=== PATIENT | female | born 1965 | race Caucasian/White ===

== ENCOUNTER → 2017-12-04 16:16 | Outpatient (CLI) | payer BC, SELFPAY ==
[2017-12-09 10:29] LABS: HPV Reflexed? NOT INDICATED
== END ==
PROVIDERS: Visit Provider Obstetrics & Gynecology
DX: Z12.4 Encounter for screening for malignant neoplasm of cervix (principal)
CPT/HCPCS: 88175; G0145

== ENCOUNTER → 2018-02-13 08:54 | Outpatient (CLI) | payer BC, SELFPAY ==
--- NOTE | 2018-02-13 09:00 | BI_ITS ---
MAMMOGRAPHY - BILATERAL SCREENING REASON FOR EXAM: Female, 52 years old. Routine annual screening examination. PERTINENT HISTORY: Non-contributory. TECHNIQUE: Digital bilateral breast beltran (3D mammographic acquisition) in the CC and MLO projections. 2-D mediolateral oblique (MLO) and craniocaudad (CC) views of both breasts were obtained. CAD: Full Field Digital Mammography with Computer Added Detection was performed. COMPARISON: Comparison is made with prior examination dated February 09, 2017 and February 08, 2016. FINDINGS: Breast Composition: The breasts are heterogeneously dense, which may obscure small masses. There are no dominant masses or suspicious calcifications. Stable benign-appearing bilateral axillary lymph nodes. No other significant abnormalities are identified. There has been no significant change since the prior study. BI/SCREENING MAMM (CAD), BILAT IMPRESSION: Stable bilateral screening mammogram. Yearly follow-up mammogram recommended. (A) ASSESSMENT CATEGORY: BIRADS Category 1: Negative. A letter regarding these results will be sent to the patient by the facility within 30 days. Approximately 10% of breast cancers are not detected by mammography. A normal mammogram should not delay biopsy of a clinically suspicious abnormality. [id number] Electronically Signed: Alverto Simpson MD at 10:05 EDT Tel [phone], Service support ,
== END ==
PROVIDERS: Visit Provider Obstetrics & Gynecology
DX: Z12.31 Encounter for screening mammogram for malignant neoplasm of breast (principal)
CPT/HCPCS: 77063; 77067

== ENCOUNTER → 2019-04-07 | Outpatient (CLI) | payer BC, SELFPAY ==
--- NOTE | 2019-04-07 16:51 | BI_ITS ---
MAMMOGRAPHY - BILATERAL SCREENING REASON FOR EXAM: Female, 53 years old. Routine annual screening examination. PERTINENT HISTORY: Non-contributory. TECHNIQUE: Digital bilateral breast heladio (3D mammographic acquisition) in the CC and MLO projections. 2-D mediolateral oblique (MLO) and craniocaudad (CC) views of both breasts were obtained. CAD: Full Field Digital Mammography with Computer Added Detection was performed. COMPARISON: Comparison is made with prior study dated February 13, 2018 and February 09, 2017. FINDINGS: Breast Composition: The breasts are heterogeneously dense, which may obscure small masses. There are no dominant masses or suspicious calcifications. Stable appearance of the small bilateral axillary lymph nodes. No other significant abnormalities are identified. There has been no significant change since the prior study. BI/SCREEN MAMM (CAD) W/HELADIO BILAT IMPRESSION: Stable bilateral screening mammogram. Yearly follow-up mammogram recommended. (A) ASSESSMENT CATEGORY: BIRADS Category 2: Benign. A letter regarding these results will be sent to the patient by the facility within 30 days. Approximately 10% of breast cancers are not detected by mammography. A normal mammogram should not delay biopsy of a clinically suspicious abnormality. [id number] Electronically Signed: Alverto Simpson, at 9:39 EDT , Service support ,
== END | disposition home or self-care (01) ==
LOC: OPBI 16:49
PROVIDERS: Referring Provider Obstetrics & Gynecology; Visit Provider Obstetrics & Gynecology
DX: Z12.31 Encounter for screening mammogram for malignant neoplasm of breast (principal)
CPT/HCPCS: 77063; 77067

== ENCOUNTER → 2020-06-15 13:58 | Outpatient (CLI) | payer BC, SELFPAY ==
--- NOTE | 2020-06-15 14:11 | BI_ITS ---
MAMMOGRAPHY - BILATERAL SCREENING REASON FOR EXAM: Female, 54 years old. Routine annual screening examination. PERTINENT HISTORY: Screening TECHNIQUE: Digital bilateral breast heladio (3D mammographic acquisition) in the CC and MLO projections. 2-D mediolateral oblique (MLO) and craniocaudad (CC) views of both breasts were obtained. CAD: Full Field Digital Mammography with Computer Added Detection was performed. COMPARISON: 04/07/2019 FINDINGS: Breast Composition: Heterogeneous There are no dominant masses or suspicious calcifications. No other significant abnormalities are identified. BI/SCREEN MAMM (CAD) W/HELADIO BILAT IMPRESSION: Stable bilateral screening mammogram. Yearly follow-up mammogram recommended. (A) ASSESSMENT CATEGORY: BIRADS Category 1: Negative. A letter regarding these results will be sent to the patient by the facility within 30 days. Approximately 10% of breast cancers are not detected by mammography. A normal mammogram should not delay biopsy of a clinically suspicious abnormality. [id number] Electronically Signed: Arnol Mix, at 17:14 EST Tel , Service support ,
== END ==
PROVIDERS: Referring Provider Student in an Organized Health Care Education/Training Program; Visit Provider Student in an Organized Health Care Education/Training Program
DX: Z12.31 Encounter for screening mammogram for malignant neoplasm of breast (principal)
CPT/HCPCS: 77063; 77067

== ENCOUNTER 2020-06-24 17:16 | Inpatient (IN) | payer BC, SELFPAY ==
[2020-06-24 17:17] VITALS: BP 143/73; PULSE 92; RESP 18; TEMP 37.1; O2SAT 97; BMI 28.7
--- NOTE | 2020-06-24 17:27 | ED.DCSUM_ITS ---
- ER Visit Summary Date of Service: 06/24/20 Chief Complaint: [Injury of the left leg] History of Present Illness: The patient is a 54 F [presents to the emergency department after sustaining an injury to her left leg this afternoon. Patient states that she was standing on the bathroom counter trying to change a light bulb when she fell off of the counter and landed awkwardly on her left leg. Patient states that she felt like she felt a bone break in her leg. Unable to bear weight afterwards and she crawled to call for help. Her had just pulled into the driveway and brought her to the emergency department for evaluation. Patient denies striking her head. She denies loss of consciousnes s. She denies neck pain. She denies chest pain or abdominal pain. She denies any back injury. Patient has no medical history. She has no primary care physician.] Physical Examination: [HEENT-PERRLA, EOMI. Cranial nerves II through XII grossly intact. TMs clear. Mucous membranes moist. No adenopathy. No external evidence of trauma to her head. No C-spine tenderness on palpation. She has normal active range of motion is painless. Cardiovascular-regular rate and rhythm without murmur or ectopy Lungs-clear to auscultation, chest wall stable without crepitus or subcu emphysema Abdomen-normoactive bowel sounds, soft, nontender, no rebound or rigidity, no peritoneal signs. Extremities-intact ?4, normal range of motion, normal pulses. Left leg-patient has diffuse tenderness over the proximal fibula and she holds the knee flexed and is unwilling to extend it. She is neurovascular intact distally. No broken skin noted. Unable to perform ligamentous exam of the knee secondary to pain.] Test Results: [X-rays of the right knee obtained showed a comminuted intra- articular fracture of the proximal tibia as well as the proximal fibular head as interpreted by myself and radiology in agreement on their interpretation.. The fracture involves the tibial plateau.] Emergency Department Course and Treatment: [IV line established. Patient was medicated with morphine and Zofran.] Case was discussed with orthopedic surgeon on-call Dr. Callejas who asked that we admit patient to medicine for pain control and he will consult surgically for intervention. Treatment Plan: [Admit] Disposition: [Admit] Impression: Right knee fracture/proximal tibia and proximal fibular head [] This note was generated with i[employer] dictation software. It may contain incorrect words, spelling, and punctuation that were not noted in review of the chart prior to signing ED Disposition - Plan for ED Patient: Referrals: Care Physician,No Primary [Primary Care Provider] -
--- NOTE | 2020-06-24 17:35 | RAD_ITS ---
STUDY: X-RAY - LEFT TIBIA AND FIBULA REASON FOR EXAM: Female, 54 years old. FELL OFF KITCHEN COUNTER ONTO LEFT LEG; PAIN PROXIMAL TIB FIB PROXIMAL TIB FIB INCLUDED IN KNEE XRAYS SINCE SO UNSTABLE TECHNIQUE: 2 view(s) of the tibia and fibula were obtained. COMPARISON: None. FINDINGS: Normal visualized tibia. Normal visualized fibula. The proximal tibia and fibula are described on knee x-ray. The soft tissue structures are unremarkable. RAD/Tibia & Fibula 2 Views IMPRESSION: No demonstrated fracture or malalignment. Proximal tibia and fibular fractures described on the x-ray. Electronically Signed: Arturo Alfred MD ([place]) at 18:15 EST , Service support ,
--- NOTE | 2020-06-24 17:35 | RAD_ITS ---
STUDY: X-RAY - LEFT KNEE REASON FOR EXAM: Female, 54 years old. Fell off her counter onto left leg; PAIN PROXIMAL TIB FIB TECHNIQUE: 2 view(s) of the knee. COMPARISON: None. FINDINGS: Normal visualized distal femur. There is a comminuted fracture of the proximal tibia with a transverse component extending through the metaphysis. Longitudinal components extending through the central tibial plateau as well as the lateral tibial plateau. There is approximately 7 mm of displacement of the lateral tibial plateau fracture and approximately 5 mm of lateral displacement. Transverse comminuted fracture of the proximal fibula is also identified. Normal medial femorotibial compartment. Normal lateral femorotibial compartment. There is mild degenerative arthrosis of the patellofemoral articulation. There is no demonstrated joint effusion. The soft tissue structures are unremarkable. RAD/Knee 1 or 2 Views IMPRESSION: 1. Proximal tibial fracture with tibial plateau component, including depression and displacement, as above. 2. Proximal fibular neck fracture. Electronically Signed: Arturo Alfred MD ([place]) at 18:14 EST , Service support ,
[2020-06-24] MEDS: Morphine 4 MG/ML Syringe IV ×2 (18:03→19:00)
[2020-06-24] MEDS: Ondansetron 4 MG/2 ML Vial IV (18:04)
[2020-06-24 18:56] LABS: Absolute Lymphocyte Count 1.74 X10^3/uL (0.83-4.51); Absolute Neutrophil Count 8.8 X10^3/uL (2.0-7.7); Basophil# 0.06 X10^3/uL; Basophil% 0.5 % (0-1); Eosinophil# 0.04 X10^3/uL; Eosinophils% 0.3 % (0-5); Hematocrit 38.8 % (37-47); Hemoglobin 13.1 g/dL (12.0-15.0); Lymphocyte # 1.74 X10^3/ul (4.0); Lymphocyte % 14.9 % (19-41); Mean Corp Hgb Conc 33.8 g/dL (32-36); Mean Corpuscular Hgb 30.8 pg (27.0-32.0); Mean Corpuscular Volume 91.3 fL (81-99); Mean Platelet Vol. 10.9 fl (6.2-12.0); Monocyte# 0.97 X10^3/uL; Monocyte% 8.3 % (0-10); NRBC Flagged by Analyzer 0 % (0-5); Neutrophil # 8.79 X10^3/uL (2.7-7.7); Neutrophil % 75.5 % (47-70); Platelet Count 194 K/mm3 (150-450); RBC Distribution Width CV 11.9 % (11.6-14.6); RBC Distribution Width SD 39.7 fl (35.1-43.9); Red Blood Count 4.25 M/mm3 (4.2-5.4); White Blood Count 11.7 K/mm3 (4.4-11.0)
--- NOTE | 2020-06-24 19:05 | PCM.PN.HOSP ---
Vitals/I&O's: Vital Signs Temp Pulse Resp BP Pulse Ox 98.7 F 92 18 143/73 H 97 06/24/20 17:17 06/24/20 17:17 06/24/20 17:17 06/24/20 17:17 06/24/20 17:17 Oxygen Delivery Method Room Air Weight: 73.6 kg Body Mass Index (BMI) 28.7 Laboratory Results 06/24/20 18:35: WBC 11.7 H, RBC 4.25, Hgb 13.1, Hct 38.8, MCV 91.3, MCH 30.8, MCHC 33.8, RDW Std Deviation 39.7, RDW Coeff of Maranda 11.9, Plt Count 194, MPV 10.9, Immature Gran % (Auto) 0.500, Neut % (Auto) 75.5 H, Lymph % (Auto) 14.9 L, Dauphin % (Auto) 8.3, Eos % (Auto) 0.3, Baso % (Auto) 0.5, Absolute Neuts (auto) 8.8 H, Absolute Lymphs (auto) 1.74, Nucleated RBC % 0 06/24/20 18:35: Sodium Pending, Potassium Pending, Chloride Pending, Carbon Dioxide Pending, Anion Gap Pending, BUN Pending, Creatinine Pending, Est GFR (MDRD) Af Amer Pending, Est GFR (MDRD) Non-Af Pending, BUN/Creatinine Ratio Pending, Glucose Pending, Calcium Pending STROKE Vital Signs/Narrative: Vital Signs Temp Pulse Resp BP Pulse Ox 06/24/20 17:17 98.7 F 92 18 143/73 H 97 Medical Necessity - Tobacco Use Smoking Status: Never smoker
[2020-06-24 19:10] LABS: Anion Gap 5 (5-15); BUN 15 mg/dL (7-18); BUN/Creat Ratio 15.8 RATIO (10-20); Calcium,Total 8.8 mg/dL (8.5-10.1); Chloride 107 mmol/L (98-107); Creatinine, Serum 0.95 mg/dL (0.55-1.02); EST Glomerular Filtration Rate 64 mL/min (>60); Est Glom Filt Rate - Afr Amer 78 mL/min (>60); Glucose 92 mg/dL (74-106); Potassium 3.3 mmol/L (3.5-5.1); Sodium Level 140 mmol/L (136-145)
[2020-06-24 19:31] VITALS: BP 145/75; PULSE 90; RESP 16; TEMP 37.4; O2SAT 97
[2020-06-24] MEDS: Morphine 4 MG/ML Syringe 3 MG IV (20:26)
[2020-06-24 20:28] VITALS: BMI 29.0
--- NOTE | 2020-06-24 20:36 | EKG12_ITS ---
Test Reason : PRE-OP Blood Pressure : / mmHG Vent. Rate : 078 BPM Atrial Rate : 078 BPM P-R Int : 124 ms QRS Dur : 082 ms QT Int : 370 ms P-R-T Axes : 052 021 033 degrees QTc Int : 421 ms Normal sinus rhythm Normal ECG Confirmed by WIN MERA, ANTONIO ([id number]), marketing editor ARIADNE LEE ([id number]) on 06/27/2020 1:30:40 PM Referred By: DR BRIDGES Confirmed By:ANTONIO WALDEN MD
[2020-06-24 20:37] VITALS: BP 125/53; PULSE 87; RESP 16; TEMP 37.1; O2SAT 100
--- NOTE | 2020-06-24 20:37 | PCM.HP.STD ---
Problem List (1) Closed fracture of tibial plafond with fibula involvement Status: Acute History of Present Illness Date of Admission: 06/24/20 Chief Complaint: Fall with left knee pain The patient is a 54 year old previously healthy female who presented to the emergency department with a fall and pain at her lateral left leg proximal to her left knee. Patient was changing a light bulb in her bathroom. She stood on a stool but she was unable to screw the bulb in so she stood on her bathroom counter. She fell from the bathroom counter. She did not hit her head. She had pain at the above area. The pain is sharp. The pain is intensity 10 out of 10 and it was getting progressively worse. The pain is aggravated by movement and improved with rest. At the emergency department emergency ED doc applied a splint to the entire left leg including left knee. Emergency department doctor discussed the case with orthopedic surgeon who will follow in consult. Past Medical History Medical History: Medical History (Last Reviewed 06/24/20 @ 21:[address] Subhash Silverman MD) Denies previous medical history Allergies No Known Allergies Allergy (Verified 06/24/20 18:09) Home Medications: Ambulatory Orders Medication Instructions Recorded NK 06/24/20 Surgical History: - - Section x2 Smoking Status: Never smoker Alcohol: Occasional - *Family History Paternal History Items: Heart Disease - His father from a massive heart attack Maternal History Items: - - His mother fell and broke her hip and now in the [place] [facility]. Patient does not know other maternal medical history. Review of Systems Constitutional: Denies: Chills, Fever, Weight Change HEENT: Denies: Head Aches, Sinus Congestion, Sinus Drainage Cardiovascular: Denies: Chest Pain, Palpitations Respiratory: Denies: Cough, Shortness of breath at rest, Sputum production Gastrointestinal: Denies: Abdominal Pain, Nausea, Vomiting Genitourinary: Denies: Dysuria Musculoskeletal: Reports: Joint Tenderness, Leg Pain. Denies: Joint Pain Skin: Denies: Rash, Wounds Neurological: Denies: Numbness, Tingling, Focal weakness Psychiatric: Denies: Anxiety, Depression, Homicidal Ideations, Suicidal Ideations Hematologic/ Lymphatic: Denies: Easy Bruising, Easy Bleeding VTE Information - Inpt Only VTE Present on Admission: No VTE Mechan Device Prophylaxis: SCD's VTE Pharm Prophylaxis ordered?: No Patient Problems: Active and Suspected Problems (Last Updated 06/24/20 @ 20:[address] Subhash Silverman MD) Closed fracture of tibial plafond with fibula involvement (Acute) - Physical Exam Vitals/I&O's: Vital Signs Temp Pulse Resp BP Pulse Ox 99.3 F H 90 16 145/75 H 97 06/24/20 19:31 06/24/20 19:31 06/24/20 19:31 06/24/20 19:31 06/24/20 19:31 Oxygen Delivery Method Room Air Weight: 74.4 kg Body Mass Index (BMI) 29.0 General: Alert, Oriented x3, Cooperative HEENT: Atraumatic, PERRLA, EOMI, Normocephalic Neck: Supple, No JVD, Negative Carotid Bruits Lungs: Clear to auscultation, Normal air movement Cardiovascular: Regular rate, Normal S1, Normal S2, No murmurs Abdomen: Bowel Sounds Present, Soft, Non Tender Extremities: Tenderness - LEFT LEG, - - Left legt in splint Skin: No rashes, No breakdown Musculoskeletal: No Tenderness to Palpation of Joints or Extremities Neurological: Cranial nerves II-XII grossly intact Psych/Mental Status: Normal Affect, Appropriate Microbiology Past 72 Hours 06/24/20 19:35 Mucosa - Nose SARS-CoV-2 Antigen (Rapid) - Final Laboratory Results 06/24/20 18:35: WBC 11.7 H, RBC 4.25, Hgb 13.1, Hct 38.8, MCV 91.3, MCH 30.8, MCHC 33.8, RDW Std Deviation 39.7, RDW Coeff of Maranda 11.9, Plt Count 194, MPV 10.9, Immature Gran % (Auto) 0.500, Neut % (Auto) 75.5 H, Lymph % (Auto) 14.9 L, Elbert % (Auto) 8.3, Eos % (Auto) 0.3, Baso % (Auto) 0.5, Absolute Neuts (auto) 8.8 H, Absolute Lymphs (auto) 1.74, Nucleated RBC % 0 06/24/20 18:35: Sodium 140, Potassium 3.3 L, Chloride 107, Carbon Dioxide 28.0, Anion Gap 5, BUN 15, Creatinine 0.95, Estim Creat Clear Calc 54.70, Est GFR (MDRD) Af Amer 78, Est GFR (MDRD) Non-Af 64, BUN/Creatinine Ratio 15.8, Glucose 92, Calcium 8.8 Current Medications Melatonin (Melatonin 3 Mg Tablet) 3 mg PO QHS PRN PRN PRN Reason: INSOMNIA Morphine Sulfate (Morphine 2 Mg/Ml Syringe) 2 mg IV Q3H PRN PRN PRN Reason: Pain Score 6-10 Ondansetron HCl (Ondansetron 4 Mg/2 Ml Vial) 4 mg IV Q8H PRN PRN PRN Reason: NAUSEA/VOMITING Assessment/Plan All Active Problems (Last Updated 06/24/20 @ 20:[address] Subhash Silverman MD) Closed fracture of tibial plafond with fibula involvement (Acute) Proximal tibial fracture proximal fibular neck fracture Pain control with IV morphine. Antiemetics and bowel protocol in place. N.p.o. after midnight. Patient is healthy for surgery. EKG ordered. DVT Prophylaxis SCD. Inpatient E&M: 12299 Init Hosp L2
[2020-06-24 20:38] VITALS: BMI 29.1
[2020-06-24] MEDS: HYDROmorphone 0.5 MG/0.5 ML SYRINGE IV (22:19)
[2020-06-24] MEDS: 0.9% Saline Lock 10 ML Syringe IV (22:19)
[2020-06-24] MEDS: MELATONIN 3 MG TABLET PO (23:31)
[2020-06-25] VITALS (16 sets, daily range): BP systolic 118–137; BP diastolic 56–72; PULSE 63–81; RESP 16–18; TEMP 36.7–37.5; O2SAT 92–97; BMI 28.3
[2020-06-25] MEDS: HYDROmorphone 0.5 MG/0.5 ML SYRINGE IV (02:31)
[2020-06-25] MEDS: 0.9% Saline Lock 10 ML Syringe IV ×4 (02:31→16:36)
--- NOTE | 2020-06-25 05:45 | RAD_ITS ---
STUDY: X-RAY - LEFT KNEE REASON FOR EXAM: Female, 54 years old. FX, EXTERNAL FIXATION TECHNIQUE: 2 view(s) of the knee. COMPARISON: Comparison is made with prior examination dated 06/24/2020. FINDINGS: Intraoperative imaging provided for external fixation of the lateral tibial plateau fracture. RAD/Knee 1 or 2 Views IMPRESSION: Intraoperative imaging provided for external fixation of the lateral tibial plateau fracture. Electronically Signed: Alverto Simpson, at 10:31 EST , Service support ,
--- NOTE | 2020-06-25 05:55 | CON.PCM_ITS ---
Reason for Consult Date of Consultation: 06/25/20 Reason for Consultation: Left leg injury. requested by dr christiansen History of Present Illness: The patient is a 54 year old F with limited medical comorbidities was standing on her bathroom counter last evening changing a light bulb when she fell off. She sustained an injury to her left leg. She had immediate pain and swelling was unable to bear weight. She was brought to the emergency department where she was found to have a Schatzker 6 tibial plateau fracture. Due to the injury patient had 10 out of 10 pain. She was placed in a posterior splint. Pain is improved with immobilization. She denies any associated numbness and tingling. She has been controlled by pain throughout the evening with pain medications and immobilization. She is able to wiggle her toes without significant reproducible pain. Pain is located in the left knee and thigh. Past Medical History Medical History: Medical History (Last Reviewed 06/24/20 @ 21:[address] 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 Patient does not know other maternal medical history. Review of Systems Constitutional: Denies: Chills, Fever, Weight Change HEENT: Denies: Head Aches, Sinus Congestion, Sinus Drainage Cardiovascular: Denies: Chest Pain, Palpitations Respiratory: Denies: Cough, Shortness of breath at rest, Sputum production Gastrointestinal: Denies: Abdominal Pain, Nausea, Vomiting Genitourinary: Denies: Dysuria Musculoskeletal: Reports: Joint Pain, Joint Tenderness Skin: Denies: Rash, Wounds Neurological: Denies: Numbness, Tingling, Focal weakness Psychiatric: Denies: Anxiety, Depression, Homicidal Ideations, Suicidal Ideations Hematologic/ Lymphatic: Denies: Easy Bruising, Easy Bleeding Patient Problems: Active and Suspected Problems (Last Reviewed 06/24/20 @ 21:[address] Subhash Silverman MD) Closed fracture of tibial plafond with fibula involvement (Acute) Objective: X-rays of the left tibia and fibula and left knee show a Schatzker 6 tibial plateau fracture falling into varus alignment - Physical Exam Vitals/I&O's: Vital Signs Temp Pulse Resp BP Pulse Ox 98.9 F 75 17 137/63 H 93 06/25/20 04:56 06/25/20 04:56 06/25/20 04:56 06/25/20 04:56 06/25/20 04:56 Oxygen Delivery Method Room Air Weight: 160 lb Body Mass Index (BMI) 28.3 Intake and Output for Last 24 Hours 06/23/20 06/24/20 06/25/20 23:59 23:59 23:59 Intake Total 500 / 500 Output Total 500 / 500 Balance 0 / 0 General: Alert, Oriented x3, Cooperative HEENT: Atraumatic, PERRLA, EOMI, Normocephalic Neck: No JVD Lungs: - - Nonlabored breathing Cardiovascular: - - Regular pulse rate Abdomen: Non-Distended Extremities: - - Sensations in left lower extremity: Extremity is splinted. Patient's calf is soft and supple. Toes are warm and pink with brisk cap ref ill. Patient tolerates passive range of motion without excessive increase in pain. Sensations intact light touch saphenous, sural, superficial peroneal, deep per Skin: No rashes Musculoskeletal: Tenderness Neurological: Cranial nerves II-XII grossly intact Psych/Mental Status: Normal Affect Microbiology Past 72 Hours 06/24/20 19:35 Mucosa - Nose SARS-CoV-2 Antigen (Rapid) - Final Laboratory Results 06/24/20 18:35: WBC 11.7 H, RBC 4.25, Hgb 13.1, Hct 38.8, MCV 91.3, MCH 30.8, MCHC 33.8, RDW Std Deviation 39.7, RDW Coeff of Maranda 11.9, Plt Count 194, MPV 10.9, Immature Gran % (Auto) 0.500, Neut % (Auto) 75.5 H, Lymph % (Auto) 14.9 L, Crenshaw % (Auto) 8.3, Eos % (Auto) 0.3, Baso % (Auto) 0.5, Absolute Neuts (auto) 8.8 H, Absolute Lymphs (auto) 1.74, Nucleated RBC % 0 06/24/20 18:35: Sodium 140, Potassium 3.3 L, Chloride 107, Carbon Dioxide 28.0, Anion Gap 5, BUN 15, Creatinine 0.95, Estim Creat Clear Calc 54.70, Est GFR (MDRD) Af Amer 78, Est GFR (MDRD) Non-Af 64, BUN/Creatinine Ratio 15.8, Glucose 92, Calcium 8.8 Current Medications Hydromorphone HCl (Hydromorphone 0.5 Mg/0.5 Ml Syringe) 0.5 mg IV Q3H PRN PRN PRN Reason: pain [id number] Last Admin: 06/25/20 02:31 Dose: 0.5 mg Documented by: Melatonin (Melatonin 3 Mg Tablet) 3 mg PO QHS PRN PRN PRN Reason: INSOMNIA Last Admin: 06/24/20 23:31 Dose: 3 mg Documented by: Ondansetron HCl (Ondansetron 4 Mg/2 Ml Vial) 4 mg IV Q8H PRN PRN PRN Reason: NAUSEA/VOMITING Senna/Docusate Sodium (Senna/Docusate Sodium 1 Tablet) 2 tablet PO DAILY PRN PRN PRN Reason: CONSTIPATION Sodium Chloride (0.9% Saline Lock 10 Ml Syringe) 10 - 40 ml IV UD PRN PRN Reason: SALINE FLUSH Last Admin: 06/25/20 05:06 Dose: 10 ml Documented by: Assessment/Plan All Active Problems (Last Reviewed 06/24/20 @ 21:[address] Subhash Silverman MD) Closed fracture of tibial plafond with fibula involvement (Acute) Patient has unstable Schatzker 6 tibial plateau fracture. Treatment options were discussed the patient. I explained the patient is a complex fracture. Transfers are difficult at this time due to the viral pandemic and associated hospital bed shortages. At this time I discussed the patient that my goal is to stabilize the fracture and obtain a consultation on an outpatient basis with a fracture traumatologist as the swelling decreases. I explained the way to do this is with an external fixator which will give her more stability and better alignment controlled in the posterior splint. Risks and benefits of this procedure were discussed the patient including but not limited to blood loss, DVTs, PEs, nervous damage, infection, general skin anesthesia including loss of life. We also discussed postoperative pain care. Patient demonstrates an understanding wishes to proceed today. [facility] Office:
--- NOTE | 2020-06-25 06:34 | OP.PCM_ITS ---
Report of Operation Date of Procedure: 06/25/20 Pre-Operative Diagnosis: Left knee Schatzker 6 tibial plateau fracture Post-Operative Diagnosis: Left knee Schatzker 6 tibial plateau fracture Surgery/Procedure Performed:: Placement uniplanar external fixator left leg Description of Surgical Findings:: Stable alignment. Compartments remain compressible systems technologist: Yuri De La Rosa Type of Anesthesia:: General Anesthesiologist: Feli Muller Special Medications: 2 g Ancef IV Estimated Blood Loss (mL): 20 Fluids Replaced: 300 mL crystalloid Description of Procedure: On the day of the procedure patient was met in the preoperative area. Patient was seen and examined there. The left lower extremity was marked after we agreed on the side and the site as well as the procedure to be performed as mentioned in the consultation. At this time the patient was taken back to the operating room where anesthesia assumed control of the C-spine and airway. We transferred her to the table in the supine position. Anesthesia then administered anesthetic placing an LMA. After patient was properly anesthetized bump was placed underneath the left hip left leg was placed on blankets for elevation and the left lower extremity was then prepped in a sterile fashion while the surgeon and financial sales assistant scrub. After reentering the room the left lower extremity was draped in a sterile orthopedic fashion. Timeout was called and when agreed upon the side, the site, she did perform, patient's identity and antibiotics given. At this time pin guides were used to make 4 incisions 2 on the femur and 2 on the tibia. Once this was completed 2 pins were then placed bicortically through the femur and 2 pins were placed bicortically through the tibia. Live x-ray was used to verify placement of the pins. Once we are happy with placement of the pins bar connector was placed. The longus bar possible was chosen. It was fixed tightly proximally. Traction was pulled to ensure the appropriate alignment. Live x- ray was used to verify alignment and the distal connector was tightened down. We then tightened all the pins and connectors with a wrench firmly. Once it was completed live x-rays used to verify fracture alignment once more. We then checked the compartments which remained compressible in both the calf and thigh. At this time we also checked the toes and she has good cap refill. Xeroform was placed around the pin sites. A loosely wrapped Uday bandage and Kerlix were placed. We verified we can place 2 fingers between the soft tissues and the Curlex both proximally distally. Patient was awakened by anesthesia. She was transferred to the bed and transferred back to PACU for recovery. Postop plan for this patient we will arrange for the patient to have consultation with an orthopedic traumatologist for final fixation. Ice and elevation. She is comfortable she would likely be able to be discharged later today. Preoperatively we discussed the potential for development of compartment syndrome even in a delayed fashion. The symptoms were discussed and patient understands if she goes home today she is to monitor for this. Finally patient will begin pin care in 48 hours using 50:50 mixture of hydrogen peroxide and water twice daily. Patient is nonweightbearing. - Complications No intraoperative complications - Admit VTE Documentation VTE Present on Admission: No VTE Mechan Device Prophylaxis: SCD's, Thigh High PAWAN Hose VTE Pharm Prophylaxis ordered?: Yes
[2020-06-25] MEDS: Lactated Ringers 1,000 ML 999 ML IV (07:10)
[2020-06-25] MEDS: Morphine 2 MG/ML Syringe IV ×2 (08:26→20:45)
--- NOTE | 2020-06-25 10:10 | CASEMGMT ---
RN CORNELL Face to Face with patient for initial transition planning/care coordination assessment. RN CORNELL introduced self and role at [facility]. Patient lying in bed, alert and oriented. Patient willing to participate in assessment and is able to answer all questions appropriately. Care providers, pharmacy, and demographics verified. Patient wishes to discharge home, will monitor for need for HHC. Patient states she has no further needs or concerns at this time. CM to follow for discharge planning needs that may arise. PCP: No PCP RN CORNELL to provided list Specialists: Connor Kebede GYN [facility] Insurance: [place] Prescription Benefit: yes Living Will/HPOA: yes, [facility] LNOK: Living Arrangements: Patient lives in a single story home with 2 steps to enter the home. Patient states she is independent at home. Transportation: self, DME/HHC: Patient denies DME or previous HHC. Patient will need walker or crutches at discharge. PT/OT pending. Disposition Plan: Patient to discharge home with family support and follow-up plans in place. Tyesha DIAZ, RN, CM
--- NOTE | 2020-06-25 11:42 | CT_ITS ---
STUDY: CT LEFT KNEE WITHOUT CONTRAST REASON FOR EXAM: Female, 54 years old. FELL OFF COUNTER WHILE CHANGING A LIGHT BULB. HAD SURGERY THIS MORNING TO STABALIZE FX RADIATION DOSAGE (If Supplied By Facility): CTDIvol = ( 15.35 ) mGy, DLP = ( 577.58 ) mGycm TECHNIQUE: Transaxial CT imaging of the knee was performed. Coronal and sagittal images were reformatted. Individualized dose optimization techniques were used for this CT. COMPARISON: Yesterday FINDINGS: Transverse dominant fracture of the proximal tibial metaphysis with comminuted, longitudinal fracture lines extending to the lateral more than medial tibial plateau. There is approximately 5 mm of depression involving the lateral tibial plateau with the lateral tibial fracture showing approximately 4 mm of displacement. There is a comminuted fracture involving the anterior tibial eminence/spine. Fracture of the medial tibial plateau is best seen on sagittal image 34 of series 601) involving the posterior more than anterior articular surface. The distal femur and patella are intact. Transverse diameter fracture of the fibular neck is moderately displaced measuring up to 6 mm. The fracture line extends to the proximal tibial-fibular articulation. There is preservation of the articular joint space of the medial knee compartment. There is preservation of the articular joint space of the lateral knee compartment. The quadriceps tendon is grossly normal. The patellar tendon is grossly normal. Normal Hoffa''s fat pad. A moderate volume hemarthrosis is seen, predominantly in the suprapatellar space. CT/Extremity Lower without Contra IMPRESSION: 1. Proximal tibial fracture with tibial plateau involvement with depression (predominantly lateral and displacement, as above. 2. Proximal fibular/fibular neck fracture. 3. Hemarthrosis. Electronically Signed: Arturo Alfred MD ([place]) at 12:06 EST , Service support ,
--- NOTE | 2020-06-25 12:49 | PN_ITS ---
Patient Problems: Active and Suspected Problems (Last Reviewed 06/24/20 @ 21:[address] Subhash Silverman MD) Closed fracture of tibial plafond with fibula involvement (Acute) Subjective: Seen postoperatively, and she is little sleepy. Has some pain in her left leg but otherwise doing okay. Vitals/I&O's: Vital Signs Temp Pulse Resp BP Pulse Ox 98.4 F 66 18 129/62 H 93 06/25/20 11:09 06/25/20 11:09 06/25/20 11:09 06/25/20 11:09 06/25/20 11:09 Oxygen Flow Rate (L/min) 2 Oxygen Delivery Method Nasal Cannula Weight: 160 lb Body Mass Index (BMI) 28.3 Intake and Output for Last 24 Hours 06/23/20 06/24/20 06/25/20 23:59 23:59 23:59 Intake Total 1500 / 1500 Output Total 500 / 500 Balance 1000 / 1000 General: Alert, Oriented x3, Cooperative, No apparent distress HEENT: Atraumatic, PERRLA, EOMI, Normocephalic Oral: Moist Mucosa Neck: Supple, No JVD Lungs: Clear to auscultation, Normal air movement, No rhonchi, No wheeze, No rales Cardiovascular: Regular rate, Regular Rhythm, Normal S1, Normal S2, No murmurs Abdomen: Soft, Non Tender, Non-Distended, No Hepato-splenomegaly Extremities: No edema, Capillary Refill Less than 3 Seconds Skin: No rashes, No breakdown, - - Exfix in place. Neurological: Neuro grossly intact, Sensory exam intact to light touch and pain Psych/Mental Status: Normal Affect, Appropriate Microbiology Past 72 Hours 06/24/20 19:35 Mucosa - Nose SARS-CoV-2 Antigen (Rapid) - Final Laboratory Results 06/24/20 18:35: WBC 11.7 H, RBC 4.25, Hgb 13.1, Hct 38.8, MCV 91.3, MCH 30.8, MCHC 33.8, RDW Std Deviation 39.7, RDW Coeff of Maranda 11.9, Plt Count 194, MPV 10.9, Immature Gran % (Auto) 0.500, Neut % (Auto) 75.5 H, Lymph % (Auto) 14.9 L, [place] % (Auto) 8.3, Eos % (Auto) 0.3, Baso % (Auto) 0.5, Absolute Neuts (auto) 8.8 H, Absolute Lymphs (auto) 1.74, Nucleated RBC % 0 06/24/20 18:35: Sodium 140, Potassium 3.3 L, Chloride 107, Carbon Dioxide 28.0, Anion Gap 5, BUN 15, Creatinine 0.95, Estim Creat Clear Calc 54.70, Est GFR (MDRD) Af Amer 78, Est GFR (MDRD) Non-Af 64, BUN/Creatinine Ratio 15.8, Glucose 92, Calcium 8.8 Current Medications Acetaminophen (Acetaminophen 500 Mg Tablet) 1,000 mg PO Q8 ON LICENSE OF [facility] Enteral Nutritional Formula (Ensure Surgery 237 Ml Liquid) 237 ml PO TIDCM ON LICENSE OF [facility] Last Admin: 06/25/20 10:17 Dose: Not Given Documented by: Cefazolin Sodium () 1 gm in 50 mls @ 150 mls/hr IV Q8 ON LICENSE OF [facility] Stop: 06/25/20 22:19 Melatonin (Melatonin 3 Mg Tablet) 3 mg PO QHS PRN PRN PRN Reason: INSOMNIA Last Admin: 06/24/20 23:31 Dose: 3 mg Documented by: Morphine Sulfate (Morphine 2 Mg/Ml Syringe) 2 - 4 mg IV Q2H PRN PRN PRN Reason: Pain Score 6-10 Last Admin: 06/25/20 08:26 Dose: 4 mg Documented by: Ondansetron HCl (Ondansetron 4 Mg/2 Ml Vial) 4 mg IV Q8H PRN PRN PRN Reason: NAUSEA/VOMITING Oxycodone HCl (Oxycodone 5 Mg Tablet) 5 - 10 mg PO Q4H PRN PRN PRN Reason: Pain Score 4-10 Senna/Docusate Sodium (Senna/Docusate Sodium 1 Tablet) 2 tablet PO DAILY PRN PRN PRN Reason: CONSTIPATION Sodium Chloride (0.9% Saline Lock 10 Ml Syringe) 10 - 40 ml IV UD PRN PRN Reason: SALINE FLUSH Last Admin: 06/25/20 08:26 Dose: 10 ml Documented by: STROKE Vital Signs/Narrative: Vital Signs Temp Pulse Resp BP Pulse Ox 06/25/20 11:09 98.4 F 66 18 129/62 H 93 06/25/20 09:14 98.5 F 66 18 124/63 H Medical Necessity - Tobacco Use Smoking Status: Never smoker Assessment/Plan All Active Problems (Last Reviewed 06/24/20 @ 21:[address] Subhash Silverman MD) Closed fracture of tibial plafond with fibula involvement (Acute) 1. Left proximal tibial plateau fracture and proximal fibular neck fracture -Status post repair 06/25/2020 -PT/OT -Pain management -She will need to follow-up with an orthopedic traumatologist as an outpatient to remove the exfix and complete repair DVT: SCDs Inpatient E&M: [id number] Subs Hosp L2
[2020-06-25] MEDS: Cefazolin 1 GM/50 ML BAG IV ×2 (13:26→20:45)
[2020-06-25] MEDS: Acetaminophen 500 MG Tablet 1000 MG PO ×2 (13:27→20:45)
--- NOTE | 2020-06-25 16:48 | NURSING ---
PT UNABLE TO VOID, FEELS DISCOMFORT. BLADDER SCAN = 831 ML, ST CATHED FOR 800ML. PT REPORTS RELIEF.
[2020-06-26 05:47] VITALS: BP 130/66; PULSE 74; RESP 16; TEMP 37.1; O2SAT 96
[2020-06-26] MEDS: Acetaminophen 500 MG Tablet 1000 MG PO ×3 (05:52→21:06)
--- NOTE | 2020-06-26 08:00 | PCM.PN.ORT ---
Patient Problems: Active and Suspected Problems (Last Reviewed 06/24/20 @ 21:[address] Subhash Silverman MD) Closed fracture of tibial plafond with fibula involvement (Acute) Subjective: Patient lying in bed awake. Patient states pain is been well managed. Patient's stated she had occasional cramp in her leg during the night. At this time she denies any calf pain, any ankle or foot pain. Denies any numbness of her lower left leg. Patient denies any chest pain, shortness of breath, calf pain, nausea vomiting. Patient states she is anxious to return home Objective: Exam, patient resting comfortably in bed. She is alert and oriented. Cranial nerves II through XII grossly intact. Patient has good motion of the upper extremities without limitations. Patient's left leg was in an Uday wrap with an exfix in place of the lower extremity. Patient had no calf pain, the calf was soft and nontender. Negative Homans. Patient should did have strong posterior tibial, as well as dorsalis pedis pulse. The left foot was of equal temperature of that to the right. Patient had good cap refill. Patient reported no paresthesias to touch. Patient has good strength with plantar flexion dorsiflexion of left foot. - Physical Exam Vitals/I&O's: Vital Signs Temp Pulse Resp BP Pulse Ox 98.8 F 74 16 130/66 H 96 06/26/20 05:47 06/26/20 05:47 06/26/20 05:47 06/26/20 05:47 06/26/20 05:47 Oxygen Flow Rate (L/min) 2 Oxygen Delivery Method Room Air Weight: 72.575 kg Body Mass Index (BMI) 28.3 Intake and Output for Last 24 Hours 06/24/20 06/25/20 06/26/20 23:59 23:59 23:59 Intake Total 2200 / 2200 500 / 500 Output Total 2425 / 2425 1050 / 1050 Balance -225 / -225 -550 / -550 General: Alert, Oriented x3, Cooperative HEENT: PERRLA Oral: Moist Mucosa Neurological: Cranial nerves II-XII grossly intact Psych/Mental Status: Normal Affect, Alert and oriented to time, place, person, mood and affect Microbiology Past 72 Hours 06/24/20 19:35 Mucosa - Nose SARS-CoV-2 Antigen (Rapid) - Final Current Medications Acetaminophen (Acetaminophen 500 Mg Tablet) 1,000 mg PO Q8 [facility] Last Admin: 06/26/20 05:52 Dose: 1,000 mg Documented by: Calcium Carbonate (Calcium Carbonate 500 Mg Tablet) 500 - 1,000 mg PO Q6H PRN PRN PRN Reason: INDIGESTION Enteral Nutritional Formula (Ensure Surgery 237 Ml Liquid) 237 ml PO TIDCM [facility] Last Admin: 06/25/20 18:48 Dose: Not Given Documented by: Melatonin (Melatonin 3 Mg Tablet) 3 mg PO QHS PRN PRN PRN Reason: INSOMNIA Last Admin: 06/24/20 23:31 Dose: 3 mg Documented by: Morphine Sulfate (Morphine 2 Mg/Ml Syringe) 2 - 4 mg IV Q2H PRN PRN PRN Reason: Pain Score 6-10 Last Admin: 06/25/20 20:45 Dose: 4 mg Documented by: Ondansetron HCl (Ondansetron 4 Mg/2 Ml Vial) 4 mg IV Q8H PRN PRN PRN Reason: NAUSEA/VOMITING Oxycodone HCl (Oxycodone 5 Mg Tablet) 5 - 10 mg PO Q4H PRN PRN PRN Reason: Pain Score 4-10 Senna/Docusate Sodium (Senna/Docusate Sodium 1 Tablet) 2 tablet PO DAILY PRN PRN PRN Reason: CONSTIPATION Sodium Chloride (0.9% Saline Lock 10 Ml Syringe) 10 - 40 ml IV UD PRN PRN Reason: SALINE FLUSH Last Admin: 06/25/20 16:36 Dose: 10 ml Documented by: Medical Necessity - Tobacco Use Smoking Status: Never smoker Assessment/Plan All Active Problems (Last Reviewed 06/24/20 @ 21:[address] Subhash Silverman MD) Closed fracture of tibial plafond with fibula involvement (Acute) Status post exfix to a left tibial plateau Schatzker 6 fracture Plan 1. Continue all pain medications as prescribed 2. Work with therapy today for instruction on transfer. 3. Keep leg elevated and iced. 4. Discharge home when cleared with medicine. 5. [facility]/Dr. Callejas will be contacting her on appointment date for traumatologist for repair of her tibial plateau fracture 6. She is to contact Dr. Callejas, or go directly to the emergency department if she starts developing severe pain in her calf, increased swelling, or temperature change of her left foot or leg. 7. She is to keep the dressing clean dry intact
[2020-06-26 08:24] VITALS: BP 135/75; PULSE 70; RESP 18; TEMP 37.1; O2SAT 94
[2020-06-26] MEDS: Ensure Surgery 237 ML LIQUID PO (08:50)
[2020-06-26] MEDS: oxyCODONE 5 MG Tablet PO ×2 (08:51→18:22)
--- NOTE | 2020-06-26 09:47 | CASEMGMT ---
Social Work Note Per outside sales engineer questions, pt has completed HCPOA and LW, haven't provided copy to [facility] and unable to bring in copies. Tyesha Araiza INSURANCE ACCOUNT REPRESENTATIVE, PARISH WORKER
--- NOTE | 2020-06-26 12:31 | PN_ITS ---
Patient Problems: Active and Suspected Problems (Last Reviewed 06/24/20 @ 21:[address] Subhash Silverman MD) Closed fracture of tibial plafond with fibula involvement (Acute) Subjective: Feels much better today, still with some pain in her left leg however she was able to sleep overnight and feels much more rested today. Vitals/I&O's: Vital Signs Temp Pulse Resp BP Pulse Ox 98.7 F 70 18 135/75 H 94 06/26/20 08:24 06/26/20 08:24 06/26/20 08:24 06/26/20 08:24 06/26/20 08:24 Oxygen Flow Rate (L/min) 2 Oxygen Delivery Method Room Air Weight: 160 lb Body Mass Index (BMI) 28.3 Intake and Output for Last 24 Hours 06/24/20 06/25/20 06/26/20 23:59 23:59 23:59 Intake Total 2200 / 2200 500 / 500 Output Total 2425 / 2425 1050 / 1050 Balance -225 / -225 -550 / -550 General: Alert, Oriented x3, Cooperative, No apparent distress HEENT: Atraumatic, PERRLA, EOMI, Normocephalic Oral: Moist Mucosa Neck: Supple, No JVD Lungs: Clear to auscultation, Normal air movement, No rhonchi, No wheeze, No rales Cardiovascular: Regular rate, Regular Rhythm, Normal S1, Normal S2, No murmurs Abdomen: Soft, Non Tender, Non-Distended, No Hepato-splenomegaly Extremities: No edema, Capillary Refill Less than 3 Seconds Skin: No rashes, No breakdown, - - Exfix in place. Neurological: Neuro grossly intact, Sensory exam intact to light touch and pain Psych/Mental Status: Normal Affect, Appropriate Microbiology Past 72 Hours 06/24/20 19:35 Mucosa - Nose SARS-CoV-2 Antigen (Rapid) - Final Current Medications Acetaminophen (Acetaminophen 500 Mg Tablet) 1,000 mg PO Q8 [facility] Last Admin: 06/26/20 05:52 Dose: 1,000 mg Documented by: Calcium Carbonate (Calcium Carbonate 500 Mg Tablet) 500 - 1,000 mg PO Q6H PRN PRN PRN Reason: INDIGESTION Enteral Nutritional Formula (Ensure Surgery 237 Ml Liquid) 237 ml PO TIDCM [facility] Last Admin: 06/26/20 08:50 Dose: 237 ml Documented by: Melatonin (Melatonin 3 Mg Tablet) 3 mg PO QHS PRN PRN PRN Reason: INSOMNIA Last Admin: 06/24/20 23:31 Dose: 3 mg Documented by: Morphine Sulfate (Morphine 2 Mg/Ml Syringe) 2 - 4 mg IV Q2H PRN PRN PRN Reason: Pain Score 6-10 Last Admin: 06/25/20 20:45 Dose: 4 mg Documented by: Ondansetron HCl (Ondansetron 4 Mg/2 Ml Vial) 4 mg IV Q8H PRN PRN PRN Reason: NAUSEA/VOMITING Oxycodone HCl (Oxycodone 5 Mg Tablet) 5 - 10 mg PO Q4H PRN PRN PRN Reason: Pain Score 4-10 Last Admin: 06/26/20 08:51 Dose: 10 mg Documented by: Senna/Docusate Sodium (Senna/Docusate Sodium 1 Tablet) 2 tablet PO DAILY PRN PRN PRN Reason: CONSTIPATION Sodium Chloride (0.9% Saline Lock 10 Ml Syringe) 10 - 40 ml IV UD PRN PRN Reason: SALINE FLUSH Last Admin: 06/25/20 16:36 Dose: 10 ml Documented by: Medical Necessity - Tobacco Use Smoking Status: Never smoker Assessment/Plan All Active Problems (Last Reviewed 06/24/20 @ 21:[address] Subhash Silverman MD) Closed fracture of tibial plafond with fibula involvement (Acute) 1. Left proximal tibial plateau fracture and proximal fibular neck fracture -Status post repair 06/25/2020 -PT/OT, for evaluation -Pain management -She will need to follow-up with an orthopedic traumatologist as an outpatient to remove the exfix and complete repair DVT: SCDs Inpatient E&M: [id number] Subs Hosp L2
[2020-06-26 14:19] VITALS: BP 123/66; PULSE 84; RESP 18; TEMP 36.6; O2SAT 97
[2020-06-26] MEDS: Morphine 2 MG/ML Syringe IV (14:48)
[2020-06-26] MEDS: 0.9% Saline Lock 10 ML Syringe IV (14:49)
[2020-06-26 21:00] VITALS: BP 114/61; PULSE 82; RESP 16; TEMP 36.8; O2SAT 96
[2020-06-27 04:25] VITALS: BP 128/71; PULSE 65; RESP 16; TEMP 36.8; O2SAT 98
[2020-06-27] MEDS: oxyCODONE 5 MG Tablet PO ×3 (04:31→13:00)
[2020-06-27] MEDS: Acetaminophen 500 MG Tablet 1000 MG PO (06:26)
[2020-06-27 07:10] LABS: Absolute Lymphocyte Count 2.19 X10^3/uL (0.83-4.51); Absolute Neutrophil Count 6.1 X10^3/uL (2.0-7.7); Basophil# 0.03 X10^3/uL; Basophil% 0.3 % (0-1); Eosinophil# 0.02 X10^3/uL; Eosinophils% 0.2 % (0-5); Hematocrit 34.4 % (37-47); Hemoglobin 11.1 g/dL (12.0-15.0); Lymphocyte # 2.19 X10^3/ul (4.0); Lymphocyte % 24.1 % (19-41); Mean Corp Hgb Conc 32.3 g/dL (32-36); Mean Corpuscular Hgb 30.2 pg (27.0-32.0); Mean Corpuscular Volume 93.7 fL (81-99); Mean Platelet Vol. 10.8 fl (6.2-12.0); Monocyte% 7.7 % (0-10); NRBC Flagged by Analyzer 0 % (0-5); Neutrophil % 67.3 % (47-70); Platelet Count 163 K/mm3 (150-450); RBC Distribution Width CV 12.3 % (11.6-14.6); RBC Distribution Width SD 42.6 fl (35.1-43.9); Red Blood Count 3.67 M/mm3 (4.2-5.4); White Blood Count 9.1 K/mm3 (4.4-11.0)
[2020-06-27 07:30] LABS: Anion Gap 3 (5-15); BUN 13 mg/dL (7-18); BUN/Creat Ratio 14.3 RATIO (10-20); Calcium,Total 8.4 mg/dL (8.5-10.1); Chloride 107 mmol/L (98-107); Creatinine, Serum 0.91 mg/dL (0.55-1.02); EST Glomerular Filtration Rate 68 mL/min (>60); Est Glom Filt Rate - Afr Amer 82 mL/min (>60); Glucose 117 mg/dL (74-106); Potassium 3.6 mmol/L (3.5-5.1); Sodium Level 140 mmol/L (136-145)
[2020-06-27 08:04] VITALS: BP 108/71; PULSE 74; RESP 18; TEMP 36.7; O2SAT 97
[2020-06-27] MEDS: Senna/Docusate Sodium 1 Tablet 2 TABLET PO (08:47)
--- NOTE | 2020-06-27 09:30 | CASEMGMT ---
KAILASH SARABIA updated that patient will need wheelchair, walker, and 3 in 1 commode at discharge. KAILASH SARABIA received script. KAILASH SARABIA reviewed DME agencies with patient and would like [facility]. KAILASH SARABIA sent referral to [facility] and arranged for walker and wheelchair to be delivered to patient's room prior to discharge. Patient denies need for HHC. CM will continue to follow this patient and plan for a safe discharge.
--- NOTE | 2020-06-27 11:29 | DCINST_ITS ---
- Discharge Diagnoses Current Active Problems: Current Active and Chronic Problems (Last Reviewed 06/24/20 @ 21:[address] Subhash iSlverman MD) Closed fracture of tibial plafond with fibula involvement (Acute) You will use the following diet at home:: Regular Your food should be the consistency of: Regular Your liquids should be the consistency of: Regular/Thin Weight Bearing Status: No weight bearing - Left lower extremity Call your doctor if your incision/area has: Increased Pain/ Swelling, Increased Redness Call your doctor if you observe: Fever of 101 or Higher, Shortness of breath, D izziness, Fainting spells, Swelling in the ankles, Chest pain, Increased palpitations (irregular heartbeat) Allergies/Adverse Reactions: Allergies No Known Allergies Allergy (Verified 06/24/20 18:09) Medications to take at Discharge Oxycodone [Oxyir] 5 mg PO Q4H PRN PRN 4 Days #10 tablet 06/27/20 The following prescriptions were given: Oxycodone [Oxyir] 5 mg PO Q4H PRN PRN 4 Days #10 tablet PRN Reason: Pain Score 4-10 Transmission Status: Sent to [facility]/pharmacy #[id number] Primary Care Physician: Care Physician,No Primary [Primary Care Provider] - Please follow up with your Primary Care Physician in: 3-5 days Test Results: Test results from this visit will be discussed in further detail at your follow- up appointment, if applicable. Please Follow Up With: Orthopedic Traumatologist When: As scheduled
[2020-06-27 13:03] VITALS: BP 117/49; PULSE 67; RESP 18; TEMP 36.8; O2SAT 97
--- NOTE | 2020-06-27 17:13 | DS.PCM_ITS ---
Discharge Date and Diagnosis - Problem List Patient Problems: Active and Suspected Problems (Last Reviewed 06/24/20 @ 21:[address] Subhash Silverman MD) Closed fracture of tibial plafond with fibula involvement (Acute) Date of Admission: 06/24/20 Date of Discharge: 06/27/20 - Primary Discharge Diagnosis Acute Problems: Active Problems (Last Reviewed 06/24/20 @ 21:[address] Subhash Silverman MD) Closed fracture of tibial plafond with fibula involvement (Acute) Hospital Course and Treatment Imaging Results: Clinical Impression(s) from Imaging Studies Knee X-Ray 06/24/20 17:35 IMPRESSION: 1. Proximal tibial fracture with tibial plateau component, including depression and displacement, as above. 2. Proximal fibular neck fracture. Electronically Signed: Arturo Alfred MD ([place]) at 18:14 EST , Service support , Tibia/Fibula X-Ray 06/24/20 17:35 IMPRESSION: No demonstrated fracture or malalignment. Proximal tibia and fibular fractures described on the x-ray. Electronically Signed: Arturo Alfred MD ([place]) at 18:15 EST , Service support , Knee X-Ray 06/25/20 05:45 IMPRESSION: Intraoperative imaging provided for external fixation of the lateral tibial plateau fracture. Electronically Signed: Alverto Simpson, at 10:31 EST , Service support , Lower Extremity CT 06/25/20 11:42 IMPRESSION: 1. Proximal tibial fracture with tibial plateau involvement with depression (predominantly lateral and displacement, as above. 2. Proximal fibular/fibular neck fracture. 3. Hemarthrosis. Electronically Signed: Arturo Alfred MD ([place]) at 12:06 EST , Service support , Report of Operation Date of Procedure: 06/25/20 Pre-Operative Diagnosis: Left knee Schatzker 6 tibial plateau fracture Post-Operative Diagnosis: Left knee Schatzker 6 tibial plateau fracture Surgery/Procedure Performed:: Placement uniplanar external fixator left leg Description of Surgical Findings:: Stable alignment. Compartments remain compressible office admin: Yuri De La Rosa Type of Anesthesia:: General Anesthesiologist: Feli Muller Special Medications: 2 g Ancef IV Estimated Blood Loss (mL): 20 Fluids Replaced: 300 mL crystalloid Consults: orthopedic surgery Procedures: None Summary of Care Provided: Per HPI: The patient is a 54 year old previously healthy female who presented to the emergency department with a fall and pain at her lateral left leg proximal to her left knee. Patient was changing a light bulb in her bathroom. She stood on a stool but she was unable to screw the bulb in so she stood on her bathroom counter. She fell from the bathroom counter. She did not hit her head. She had pain at the above area. The pain is sharp. The pain is intensity 10 out of 10 and it was getting progressively worse. The pain is aggravated by movement and improved with rest. At the emergency department emergency ED doc applied a splint to the entire left leg including left knee. Emergency department doctor discussed the case with orthopedic surgeon who will follow in consult. Hospital Course: 1. Left proximal tibial plateau fracture and proximal fibular neck fracture -Status post repair 06/25/2020 -PT/OT, for evaluation -Pain management -She will need to follow-up with an orthopedic traumatologist as an outpatient to remove the exfix and complete repair. She has an appointment with him on Thursday and she was given a disc of all of her imaging to take with her to the appointment -I discussed with her the plan for discharge today and she expressed understanding of the risk benefits of going home and would like to go home. She was given some pain medication to go home with and she will need to follow-up with her PCP if she does need more. This was expressed to her. Patient Problems: Active and Suspected Problems (Last Reviewed 06/24/20 @ 21:[address] Subhash Silvermna MD) Closed fracture of tibial plafond with fibula involvement (Acute) - Physical Exam Vitals/I&O's: Vital Signs Temp Pulse Resp BP Pulse Ox 98.2 F 67 18 117/49 L 97 06/27/20 13:03 06/27/20 13:03 06/27/20 13:03 06/27/20 13:03 06/27/20 13:03 Oxygen Flow Rate (L/min) 2 Oxygen Delivery Method Room Air Weight: 160 lb Body Mass Index (BMI) 28.3 Intake and Output for Last 24 Hours 06/25/20 06/26/20 06/27/20 23:59 23:59 23:59 Intake Total 2200 / 2200 1620 / 1870 1000 / 1000 Output Total 2425 / 2425 1950 / 2250 1000 / 1000 Balance -225 / -225 -330 / -380 0 / 0 General: Alert, Oriented x3, Cooperative, No apparent distress HEENT: Atraumatic, PERRLA, EOMI, Normocephalic Oral: Moist Mucosa Neck: Supple, No JVD Lungs: Clear to auscultation, Normal air movement, No rhonchi, No wheeze, No rales Cardiovascular: Regular rate, Regular Rhythm, Normal S1, Normal S2, No murmurs Abdomen: Soft, Non Tender, Non-Distended, No Hepato-splenomegaly Extremities: No edema, Capillary Refill Less than 3 Seconds Skin: No rashes, No breakdown, - - Exfix in place. Neurological: Neuro grossly intact, Sensory exam intact to light touch and pain Psych/Mental Status: Normal Affect, Appropriate Microbiology Past 72 Hours 06/24/20 19:35 Mucosa - Nose SARS-CoV-2 Antigen (Rapid) - Final Laboratory Results 06/27/20 06:56: WBC 9.1, RBC 3.67 L, Hgb 11.1 L, Hct 34.4 L, MCV 93.7, MCH 30.2, MCHC 32.3, RDW Std Deviation 42.6, RDW Coeff of Maranda 12.3, Plt Count 163, MPV 10.8, Immature Gran % (Auto) 0.400, Neut % (Auto) 67.3, Lymph % (Auto) 24.1, Slope % (Auto) 7.7, Eos % (Auto) 0.2, Baso % (Auto) 0.3, Absolute Neuts (auto) 6.1, Absolute Lymphs (auto) 2.19, Nucleated RBC % 0 12/09/20 06:56: Sodium 140, Potassium 3.6, Chloride 107, Carbon Dioxide 30.0, Anion Gap 3 L, BUN 13, Creatinine 0.91, Estim Creat Clear Calc 57.10, Est GFR (MDRD) Af Amer 82, Est GFR (MDRD) Non-Af 68, BUN/Creatinine Ratio 14.3, Glucose 117 H, Calcium 8.4 L Weight Bearing Status: No weight bearing - Left lower extremity Call your doctor if your incision/area has: Increased Pain/ Swelling, Increased Redness Call your doctor if you observe: Fever of 101 or Higher, Shortness of breath, Dizziness, Fainting spells, Swelling in the ankles, Chest pain, Increased palpitations (irregular heartbeat) Home Medications: Medications to take at Discharge Oxycodone [Oxyir] 5 mg PO Q4H PRN PRN 4 Days #10 tab 06/27/20 Following Prescriptions Were Given to Patient: Oxycodone [Oxyir] 5 mg PO Q4H PRN PRN 4 Days #10 tab PRN Reason: Pain Score 4-10 Transmission Status: Received by [facility]/pharmacy #[id number] Primary Care Physician: Care Physician,No Primary [Primary Care Provider] - Please follow up with your Primary Care Physician in: 3-5 days Please Follow Up With: Orthopedic Traumatologist When: As scheduled Disposition: Home Patient Condition:: Stable Medical Necessity - Tobacco Use Smoking Status: Never smoker Meaningful Use Info Meaningful Use Diagnoses (Choose all that apply): None applicable Inpatient E&M: 05114 Disch Hosp
== END 2020-06-27 15:15 | disposition home or self-care (01) | DRG 482 ==
LOC: ED 18:20 → MS3 19:51
PROVIDERS: Specialist; Admitting Provider Hospitalist; Emergency Provider Emergency Medicine; Visit Provider Family Medicine
PROC: 0QHH35Z Insertion of External Fixation Device into Left Tibia, Percutaneous Approach (ICD-10-PCS; principal; 2020-06-25 05:45)
DX: S82.142A Displaced bicondylar fracture of left tibia, initial encounter for closed fracture (principal); W17.89XA Other fall from one level to another, initial encounter; Y93.89 Activity, other specified; Y92.002 Bathroom of unspecified non-institutional (private) residence as the place of occurrence of the external cause; S82.832A Other fracture of upper and lower end of left fibula, initial encounter for closed fracture
CPT/HCPCS: 36415; 73560; 73590; 73700; 76000; 80048; 85025; 87426; 93005; 97116; 97162; 97166; 97530; 99251; 99284; C1713; J7120; A4216; G0463; J2405

== ENCOUNTER 2020-09-14 08:00 | Outpatient (RCR) | payer BC, SELFPAY ==
[2020-06-25 04:56] VITALS: BMI 28.3
--- NOTE | 2020-07-19 10:05 | HP.PTEVAL ---
Patient's Visit Information AJ LOPEZ is a 55 year old F referred to Physical Therapy by Dr. Lonnie Ryan MD with a diagnosis of L LE biconylar fracture repair 07/03/20. Date of Evaluation: 07/19/20 Physical Therapist: Amos Alexandre, PT, ATC - Visit Plan Frequency: 2x /Week Duration: 4-6 Weeks Plan: Aggressive L LE stretching and strengthening for now. Eventually incorporating balance and prorio, core, and gait training. Pt is NWB'ing for now - Subjective DOS: 06/25/2020, 07/03/2020. Pt reports she was changing a light bulb when she fell and landed on her L LE. Pt reports this resulted in a bicondular fracture of L tibial plateau. Pt reports she had to have screws and other hardware placed into her L LE to fix all the fractures. Pt reports she is less sore now since having the surgery. Pt notes she is to be NWB'ing for a couple months. Pt notes she has really been sent here for us to begin some aggressive PROM on her L knee. Occassional tingling in L foot when she swells a lot. Pt reports no sleep difficulty secondary to pain with the use of oxycodon. No PMHx. 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 Pt has 2 stairs into her house. 0/10 pain at rest, 5/10 pain at worst (usually at night time.) - Pain L LE Pain Intensity (Out of 10): 0 Pain Intensity Range: 5 - Objective Neuro: B LE sensation is WNL to light touch. Observation: Incisions still healing. No signs of infection. Moderate swelling still noted. ROM: R knee 0-127 degrees, L knee 0-15-65 degrees. MMT: R LE 5/5 throughout. L knee is 3/5 in available ROM. Girth at joint line: R knee 36 cm, L knee 40 cm - Goals Goal 1:: Decrease L LE pain x 50% toa id with sleep Goal Time Frame: 4-6 Weeks Goal 2:: Increase L LE knee ROM x 50 degrees to aid with restoring a more normalized gait pattern Goal Time Frame: 4-6 Weeks Goal 3:: Increase L LE strength x 1 grade toa id with stair negotiation Goal Time Frame: 4-6 Weeks Goal 4:: I with HEP - Rehabilitation Potential Physical Therapy Diagnosis: L LE pain, weakness, and limited ROM secondary to L LE bicondylar fracture repain Rehabilitation Potential: Good - Anticipated Interventions Patient/Client Instruction: Educate patient on: Condition, Plan of Care For the Purpose of:: To improve self management Therapeutic Exercise to Include: Strength training, Endurance training, Balance training, Flexibilty training, Gait and locomotor training, Passive ROM, Active ROM, Dynamic Lumbar Stabilization For the Purpose of:: To decrease pain, To increase ROM, To improve muscle performance and motor function Cryotherapy (ice pack, ice massage): Yes For the Purpose of:: To decrease pain Thank you for the opportunity to evaluate your patient. For Medicare and Medicare HMO plans, please review the plan of care and approve it. It will need to be FAXED BACK to us at [phone] for Medicare purposes. For Medicare only, by signing this I certify the plan of care. Please let me know if there are questions or concerns regarding this plan of care. Physician Signature: Date:
--- NOTE | 2020-08-17 08:46 | HP.PTREVAL ---
Dr. Lonnie Ryan MD, It has been my pleasure to treat AJ LOPEZ over the last 9 visits for L LE biconylar fracture repair 07/03/20. Please see the progress note below for an update on the physical therapy plan of care! Subjective: Pain is not bad at all. I am now allowed to PWB Objective/Function: L knee pain 08/29. L knee MMT: ext 4/5, flex 4-/5. L knee ROM: 0-4-97. Pt is progressing well toward Rx goals Plan Plan: WBAT. L LE stretching and strengthening, balance and proprio, core and stab ex's, nustep, and HEP Goals Goal 1:: Decrease L LE pain x 50% toa id with sleep Goal Time Frame: 4-6 Weeks Goal Progress: Progressing Goal 2:: Increase L LE knee ROM x 50 degrees to aid with restoring a more normalized gait pattern Goal Time Frame: 4-6 Weeks Goal Progress: Progressing Goal 3:: Increase L LE strength x 1 grade toa id with stair negotiation Goal Time Frame: 4-6 Weeks Goal Progress: Progressing Goal 4:: I with HEP Goal Progress: Progressing Anticipated Interventions Patient/Client Instruction: Educate patient on: Condition, Plan of Care For the Purpose of:: To improve self management Therapeutic Exercise to Include: Strength training, Endurance training, Balance training, Flexibilty training, Gait and locomotor training, Passive ROM, Active ROM, Dynamic Lumbar Stabilization For the Purpose of:: To decrease pain, To increase ROM, To improve muscle performance and motor function Cryotherapy (ice pack, ice massage): Yes For the Purpose of:: To decrease pain Please do not hesitate to contact me at [phone] by phone or if you have questions or concerns regarding this new plan of care! Sincerely, Amos Alexandre, PT, ATC
--- NOTE | 2020-10-18 10:56 | HP.PT.NRP ---
AJ LOPEZ was seen in my office for initial evaluation on 07/19/20. The following Plan of Care was established for this patient: Initial Frequency: 2x /Week Initial Duration: 4-6 Weeks Patient/Client Instruction: Educate patient on: Condition, Plan of Care For the Purpose of:: To improve self management Therapeutic Exercise to Include: Strength training, Endurance training, Balance training, Flexibilty training, Gait and locomotor training, Passive ROM, Active ROM, Dynamic Lumbar Stabilization For the Purpose of:: To decrease pain, To increase ROM, To improve muscle performance and motor function Cryotherapy (ice pack, ice massage): Yes For the Purpose of:: To decrease pain This patient was last seen in our office . Pertinent comments regarding their Physical therapy will appear below: Pt was treated for 17 PT visits for L knee fracture through the date of 09/14/20. Pt has not returned through todays date and is discontinued at this time. At this point I will be discontinuing this patient from physical therapy. I would be happy to see this patient again in the future if found appropriate by the physician. Thank you! Amos Alexandre, PT, ATC
== END 2020-09-14 19:00 | disposition home or self-care (01) ==
LOC: PT 08:00
PROVIDERS: Referring Provider Orthopaedic Surgery; Visit Provider Orthopaedic Surgery
DX: S82.142D Displaced bicondylar fracture of left tibia, subsequent encounter for closed fracture with routine healing (principal)
CPT/HCPCS: 97110; 97140; 97161; 97164

== ENCOUNTER → 2021-06-20 15:58 | Outpatient (CLI) | payer BC, SELFPAY ==
--- NOTE | 2021-06-20 16:03 | BI_ITS ---
MAMMOGRAPHY - BILATERAL SCREENING REASON FOR EXAM: Female, 55 years old. Routine annual screening examination. PERTINENT HISTORY: Non-contributory. TECHNIQUE: Digital bilateral breast heladio (3D mammographic acquisition) in the CC and MLO projections. 2-D mediolateral oblique (MLO) and craniocaudad (CC) views of both breasts were obtained. CAD: Full Field Digital Mammography with Computer Added Detection was performed. COMPARISON: Comparison is made with prior study dated 06/15/2020 and 04/07/2019. FINDINGS: Breast Composition: The breasts are heterogeneously dense, which may obscure small masses. There is a 9.3 mm x 9 mm well-defined nodule in the deep central medial aspect of the right breast. This most likely corresponds to a small lymph node. This was demonstrated to be a small lymph node on prior sonogram of the right breast dated 07/19/2015. Stable benign appearing bilateral axillary lymph nodes. No other significant abnormalities are identified. There has been no significant change since the prior study. BI/SCRN MAMM (CAD)W/HELADIO BILAT IMPRESSION: Stable bilateral screening mammogram. Yearly follow-up mammogram recommended. (A) ASSESSMENT CATEGORY: BIRADS Category 2: Benign. A letter regarding these results will be sent to the patient by the facility within 30 days. Approximately 10% of breast cancers are not detected by mammography. A normal mammogram should not delay biopsy of a clinically suspicious abnormality. [id number] Electronically Signed: Alverto Simpson MD at 8:27 EST , Service support ,
== END ==
PROVIDERS: Referring Provider Student in an Organized Health Care Education/Training Program; Visit Provider Student in an Organized Health Care Education/Training Program
DX: Z12.31 Encounter for screening mammogram for malignant neoplasm of breast (principal)
CPT/HCPCS: 77063; 77067

== ENCOUNTER → 2021-06-28 10:59 | Outpatient (CLI) | payer BC, SELFPAY ==
--- NOTE | 2021-06-28 11:01 | US_ITS ---
STUDY: ULTRASOUND BREAST - RIGHT REASON FOR EXAM: Female, 55 years old. Abnormal screening mammogram. TECHNIQUE: Axial and longitudinal images of the RIGHT breast were performed with a high resolution ultrasound transducer. # OF IMAGES: 25 COMPARISON: Comparison is made with prior mammogram dated 06/20/2021 and prior sonogram of the right breast dated 07/19/2015. FINDINGS: RIGHT Breast: There is an 8 mm x 7 mm x 4 mm slightly lobulated hypoechoic nodule at the 2 o''clock position of the breast at 5 cm from nipple. A similar appearing hypoechoic nodule measuring 6 mm x 7 mm x 3 mm is seen at the 4 o''clock position the breast at 6 cm from nipple. These are not typical benign lymph nodes. Biopsy recommended. US/Breast Limited Unilateral IMPRESSION: 2 subcentimeter hypoechoic solid nodules in the right breast as described. Biopsy is recommended. ASSESSMENT CATEGORY: BIRADS Category 4: Suspicious - Biopsy Should Be Considered. A letter regarding these results will be sent to the patient by the facility within 30 days. Electronically Signed: Alverto Simpson MD at 12:22 EST , Service support ,
== END ==
PROVIDERS: Referring Provider Student in an Organized Health Care Education/Training Program; Visit Provider Student in an Organized Health Care Education/Training Program
DX: N63.10 Unspecified lump in the right breast, unspecified quadrant (principal)
CPT/HCPCS: 76642

== ENCOUNTER → 2021-07-04 11:33 | Outpatient (CLI) | payer BC, SELFPAY ==
--- NOTE | 2021-07-04 | BRBX_PTH ---
PATIENT: AJ LOPEZ LOC: [facility], [place]#:[id number] AGE/SX: 59/F ROOM: RE07/04/[address]: Dr. Javier Nash MD : 1965 BED: DIS: SPEC #: [id number] RECD: 07/04/21 12:57 STATUS: DALTON MARISOL #: [id number] JAMARI: 07/04/21 00:[address]: Javier Nash DEPT: SURGICAL PATHOLOGY RECD BY: Giovani Law ENTERED: 07/04/21 13:10 SP TYPE: BREAST BX OTHR DR: No Primary Care Phys Tissues: Right breast, NOS Procedures: Surgery Specimen Level IV HEADER OPERATION: Right breast biopsy PRE-OP DIAGNOSIS: Right breast mass TISSUE SUBMITTED: Right breast 2 o?clock, 5 cm from nipple MICROSCOPIC DIAGNOSIS Right breast at 2 o?clock, core biopsy: Mild duct ectasia consistent with nonproliferative fibrocystic change. No evidence of malignancy. AM:aleyda 07/05/2021 MICROSCOPIC DESCRIPTION Slides are reviewed. GROSS DESCRIPTION Received in fixative is one container labeled with the patient's name and designated right breast. The specimen consists of multiple irregular and elongated fragments of yellow-white soft tissue that in aggregate measure 1.5 x 1.2 x 0.2 cm. The specimen is totally submitted in one cassette. / AM:aleyda 07/04/21 TC:5 CPT: 36664
--- NOTE | 2021-07-04 11:34 | US_ITS ---
STUDY: ULTRASOUND BREAST - RIGHT REASON FOR EXAM: Female, 55 years old. Abnormal screening mammogram. TECHNIQUE: Axial and longitudinal images of the RIGHT breast were performed with a high resolution ultrasound transducer. # OF IMAGES: 27 COMPARISON: Comparison is made with prior ultrasound of the right breast dated 06/30/2021. FINDINGS: RIGHT Breast: Under direct sonographic guidance, the surgeon performed core biopsies of the 6 mm x 5 mm x 3 mm hypoechoic solid nodule at the 2 o''clock position the breast at 5 cm from the nipple. US/US Breast Biopsy 1st Lesion IMPRESSION: Successful ultrasound-guided breast biopsy of the hypoechoic solid nodule at the 2 o''clock breast at 5 cm from nipple. ASSESSMENT CATEGORY: BIRADS Category 2: Benign. A letter regarding these results will be sent to the patient by the facility within 30 days. Electronically Signed: Alverto Simpson MD at 13:04 EST , Service support ,
--- NOTE | 2021-07-04 12:38 | PCM.OPRPT ---
Problems Associated Problem List Diagnoses (1) Abnormal ultrasound of breast: Report of Operation Date of Procedure: 07/04/21 Pre-Operative Diagnosis: Abnormal ultrasound of the right breast Post-Operative Diagnosis: Same Surgery/Procedure Performed:: Ultrasound-guided right breast biopsy Specimen's removed: Right breast biopsy Description of Procedure: Patient was placed in ultrasound and the 2:00 lesion was identified. An area lateral to this was prepped and draped. The skin was injected with local anesthetic as was the deeper breast tissue. A small seng was made with a scalpel. The mammotome biopsy needle was placed into the breast under ultrasound guidance into the mass and several biopsies were obtained which almost completely remove the mass. The needle was removed and a clip was placed into this area. Steri-Strip and bandage were placed over the incision. Medial lesion was unable to be biopsied as it was too close to the chest wall and there was no good access to this area. I discussed this with the patient and the patient would like to forego biopsy at this time and have close follow-up ultrasound. Admit VTE Documentation VTE Mechan Device Prophylaxis: SCD's
== END ==
PROVIDERS: Referring Provider Surgery; Visit Provider Surgery
DX: R92.8 Other abnormal and inconclusive findings on diagnostic imaging of breast (principal)
CPT/HCPCS: 19083; 19084; 88305

== ENCOUNTER → 2022-01-06 | Outpatient (CLI) | payer BC, SELFPAY ==
--- NOTE | 2022-01-06 09:30 | US_ITS ---
STUDY: ULTRASOUND BREAST - RIGHT REASON FOR EXAM: Female, 56 years old. Follow-up biopsy TECHNIQUE: Axial and longitudinal images of the RIGHT breast were performed with a high resolution ultrasound transducer. # OF IMAGES: 35 COMPARISON: 06/28/2021 FINDINGS: RIGHT Breast: Heterogeneous background echotexture. At 2 o''clock, 5 cm from nipple, ultrasound demonstrates no change in the 7 mm irregular parallel microlobulated hypoechoic mass with no posterior features which has been biopsied. I 4 o''clock, 6 cm from nipple, ultrasound demonstrates no change in the 6 mm oval parallel indistinct hypoechoic mass with no posterior features.: US/Breast Limited Unilateral IMPRESSION: No change in the hypoechoic masses in the medial right breast which have been biopsied. ASSESSMENT CATEGORY: BIRADS Category 2: Benign. A letter regarding these results will be sent to the patient by the facility within 30 days. Electronically Signed: Oleksandr Johnson MD at 10:52 EDT ,
== END | disposition home or self-care (01) ==
LOC: OPUS 09:28
PROVIDERS: Visit Provider Surgery
DX: Z98.890 Other specified postprocedural states (principal)
CPT/HCPCS: 76642

== ENCOUNTER → 2022-09-05 | Outpatient (CLI) | payer BC, SELFPAY ==
[2022-09-14 10:03] LABS: HPV APTIMA, High Risk Negative (Negative)
== END | disposition home or self-care (01) ==
LOC: LABSPEC 15:47
PROVIDERS: Visit Provider Student in an Organized Health Care Education/Training Program
DX: Z12.4 Encounter for screening for malignant neoplasm of cervix (principal)
CPT/HCPCS: 87624; 88175; G0145

== ENCOUNTER → 2022-09-12 | Outpatient (CLI) | payer BC, SELFPAY ==
--- NOTE | 2022-09-12 12:46 | BI_ITS ---
MAMMOGRAPHY - BILATERAL SCREENING REASON FOR EXAM: Female, 57 years old. Routine annual screening examination. PERTINENT HISTORY: Non-contributory. History of prior right ultrasound-guided breast biopsy. TECHNIQUE: Digital bilateral breast heladio (3D mammographic acquisition) in the CC and MLO projections. 2-D mediolateral oblique (MLO) and craniocaudad (CC) views of both breasts were obtained. CAD: Full Field Digital Mammography with Computer Added Detection was performed. COMPARISON: Comparison is made with prior study dated 06/20/2021 and 06/15/2022. FINDINGS: Breast Composition: The breasts are heterogeneously dense, which may obscure small masses. Stable 9 mm x 9 mm well-defined nodule in the deep central medial aspect of the right breast. A central fatty notch is seen suggestive of a small lymph node. Stable small benign-appearing bilateral axillary lymph nodes. No other significant abnormalities are identified. There has been no significant change since the prior study. BI/SCRN MAMM (CAD)W/HELADIO BILAT IMPRESSION: Stable bilateral screening mammogram. Yearly follow-up mammogram recommended. (A) ASSESSMENT CATEGORY: BIRADS Category 2: Benign. A letter regarding these results will be sent to the patient by the facility within 30 days. Approximately 10% of breast cancers are not detected by mammography. A normal mammogram should not delay biopsy of a clinically suspicious abnormality. [id number] Electronically Signed: Alverto Simpson MD at 14:12 EST ,
== END | disposition home or self-care (01) ==
LOC: OPBI 12:45
PROVIDERS: Visit Provider Student in an Organized Health Care Education/Training Program
DX: Z12.31 Encounter for screening mammogram for malignant neoplasm of breast (principal)
CPT/HCPCS: 77063; 77067

== ENCOUNTER → 2022-11-07 | Outpatient (CLI) | payer BC, SELFPAY ==
[2022-11-07 12:05] LABS: Absolute Lymphocyte Count 1.92 X10^3/uL (0.83-4.51); Absolute Neutrophil Count 5.2 X10^3/uL (2.0-7.7); Basophil# 0.07 X10^3/uL; Basophil% 0.9 % (0-1); Eosinophil# 0.06 X10^3/uL; Eosinophils% 0.8 % (0-5); Hematocrit 45.5 % (37-47); Hemoglobin 14.8 g/dL (12.0-15.0); Lymphocyte # 1.92 X10^3/ul (0.83-4.51); Lymphocyte % 24.2 % (19-41); Mean Corp Hgb Conc 32.5 g/dL (32-36); Mean Corpuscular Hgb 30.8 pg (27.0-32.0); Mean Corpuscular Volume 94.8 fL (81-99); Mean Platelet Vol. 11.2 fl (6.2-12.0); Monocyte# 0.64 X10^3/uL; Monocyte% 8.1 % (0-10); NRBC Flagged by Analyzer 0 % (0-5); Neutrophil # 5.21 X10^3/uL (2.7-7.7); Neutrophil % 65.5 % (47-70); Platelet Count 250 K/mm3 (150-450); RBC Distribution Width CV 12.3 % (11.6-14.6); RBC Distribution Width SD 42.7 fl (35.1-43.9); White Blood Count 7.9 K/mm3 (4.4-11.0)
[2022-11-07 12:24] LABS: ALB/GLOB Ratio 1.2 RATIO (0.9-2.4); AST(SGOT) 20 U/L (15-37); Alanine Aminotransfer ALT/SGPT 30 U/L (13-56); Albumin, Serum 4.2 g/dL (3.2-5.0); Alkaline Phosphatase 101 U/L (45-117); Anion Gap 2 (5-15); BUN 16 mg/dL (7-18); BUN/Creat Ratio 15.7 RATIO (10-20); Calcium,Total 9.3 mg/dL (8.5-10.1); Chloride 106 mmol/L (98-107); Cholesterol 258 mg/dL (200); Creatinine, Serum 1.02 mg/dL (0.55-1.02); EST Glomerular Filtration Rate 59 mL/min (>60); Est Glom Filt Rate - Afr Amer 71 mL/min (>60); Globulin 3.6 g/dL (2.2-4.2); Glucose 113 mg/dL (74-106); High Density Lipoprotein 66 mg/dL; Potassium 4.3 mmol/L (3.5-5.1); Protein, Total 7.8 g/dL (6.4-8.2); Sodium Level 136 mmol/L (136-145); Triglycerides 123 mg/dL; Very Low Density Lipoprotein 25 mg/dL (5-40)
== END | disposition home or self-care (01) ==
LOC: BIMLAB 08:43
PROVIDERS: PCP Internal Medicine; Referring Provider Internal Medicine; Visit Provider Internal Medicine
DX: R12 Heartburn (principal); Z13.6 Encounter for screening for cardiovascular disorders
CPT/HCPCS: 36415; 80053; 80061; 85025

== ENCOUNTER → 2023-10-16 | Outpatient (CLI) | payer BC, SELFPAY ==
--- NOTE | 2023-10-16 12:29 | BI_ITS ---
MAMMOGRAPHY - BILATERAL SCREENING REASON FOR EXAM: Female, 58 years old. Routine annual screening examination. PERTINENT HISTORY: Non-contributory. TECHNIQUE: Digital bilateral breast heladio (3D mammographic acquisition) in the CC and MLO projections. 2-D mediolateral oblique (MLO) and craniocaudad (CC) views of both breasts were obtained. CAD: Full Field Digital Mammography with Computer Added Detection was performed. COMPARISON: Comparison is made with prior study dated September 12, 2022 and June 20, 2021. FINDINGS: Breast Composition: The breasts are heterogeneously dense, which may obscure small masses. There are no dominant masses or suspicious calcifications. Stable 9 mm x 9 mm well-defined nodule in the deep central medial aspect of the right breast. A central fatty notch is seen suggestive of a small benign-appearing lymph node. No other significant abnormalities are identified. There has been no significant change since the prior study. BI/SCRN MAMM (CAD)W/HELADIO BILAT IMPRESSION: Stable bilateral screening mammogram. Yearly follow-up mammogram recommended. (A) ASSESSMENT CATEGORY: BIRADS Category 2: Benign. A letter regarding these results will be sent to the patient by the facility within 30 days. Approximately 10% of breast cancers are not detected by mammography. A normal mammogram should not delay biopsy of a clinically suspicious abnormality. [id number] Electronically Signed: Alverto Simpson MD at 15:50 EDT ,
== END | disposition home or self-care (01) ==
LOC: OPBI 12:29
PROVIDERS: PCP Internal Medicine; Referring Provider Advanced Practice Midwife; Visit Provider Advanced Practice Midwife
DX: Z12.31 Encounter for screening mammogram for malignant neoplasm of breast (principal)
CPT/HCPCS: 77063; 77067

== ENCOUNTER → 2024-10-21 | Outpatient (CLI) | payer BC, SELFPAY ==
[2024-10-21 12:14] LABS: Absolute Lymphocyte Count 1.76 X10^3/uL (0.83-4.51); Absolute Neutrophil Count 4.7 X10^3/uL (2.0-7.7); Basophil# 0.05 X10^3/uL; Basophil% 0.7 % (0-1); Eosinophil# 0.02 X10^3/uL; Eosinophils% 0.3 % (0-5); Hematocrit 45.2 % (37-47); Hemoglobin 14.7 g/dL (12.0-15.0); Lymphocyte # 1.76 X10^3/ul (0.83-4.51); Mean Corp Hgb Conc 32.5 g/dL (32-36); Mean Corpuscular Hgb 30.2 pg (27.0-32.0); Mean Corpuscular Volume 92.8 fL (81-99); Mean Platelet Vol. 11.4 fl (6.2-12.0); Monocyte# 0.54 X10^3/uL; Monocyte% 7.7 % (0-10); NRBC Flagged by Analyzer 0 % (0-5); Neutrophil # 4.65 X10^3/uL (2.7-7.7); Neutrophil % 65.9 % (47-70); Platelet Count 227 K/mm3 (150-450); RBC Distribution Width CV 12.2 % (11.6-14.6); RBC Distribution Width SD 41.8 fl (35.1-43.9); Red Blood Count 4.87 M/mm3 (4.2-5.4); White Blood Count 7.1 K/mm3 (4.4-11.0)
[2024-10-21 13:35] LABS: ALB/GLOB Ratio 1.6 RATIO (0.9-2.4); AST(SGOT) 24 U/L (<=31); Alanine Aminotransfer ALT/SGPT 19 U/L (<=34); Albumin, Serum 4.5 g/dL (3.4-4.8); Alkaline Phosphatase 96 U/L (35-104); Anion Gap 11 (5-15); BUN 14 mg/dL (4-19); BUN/Creat Ratio 14.4 RATIO (10-20); Calcium,Total 9.8 mg/dL (7.6-11.0); Carbon Dioxide 25.2 mmol/L (21.0-32.0); Chloride 105 mmol/L (98-108); Cholesterol 230 mg/dL (<=200); Creatinine, Serum 0.94 mg/dL (0.70-1.20); EST Glomerular Filtration Rate 69 (>60); Globulin 2.8 g/dL (2.2-4.2); Glucose 100 mg/dL (70-99); High Density Lipoprotein 77 mg/dL; Low Density Lipoprotein Calc. 133 mg/dL; Potassium 4.4 mmol/L (3.3-5.1); Protein, Total 7.3 g/dL (5.9-8.4); Sodium Level 141 mmol/L (133-145); Total Bilirubin 0.48 mg/dL (0.00-1.30); Triglycerides 98 mg/dL; Very Low Density Lipoprotein 20 mg/dL (5-40); cholesterol:hdl ratio screen 2.98
== END | disposition home or self-care (01) ==
LOC: BIMLAB 08:40
PROVIDERS: PCP Internal Medicine; Referring Provider Internal Medicine; Visit Provider Internal Medicine
DX: I10 Essential (primary) hypertension (principal); R12 Heartburn
CPT/HCPCS: 36415; 80053; 80061; 84443; 85025

== ENCOUNTER → 2024-10-27 | Outpatient (CLI) | payer BC, SELFPAY ==
--- NOTE | 2024-10-27 15:15 | BI_ITS ---
EXAM: SCRN MAMM (CAD)W/HELADIO BILAT 10/27/2024 CLINICAL HISTORY: F, Age 59 y/o , BREAST CANCER SCREENING TECHNIQUE: Bilateral screening digital breast tomosynthesis with 2D and 3D images. Computer aided detection. COMPARISON: Prior exam(s) dated 10/16/2023, 09/12/2022. FINDINGS: TISSUE DENSITY: The breast tissue is heterogenously dense, which may obscure small masses. The mammogram demonstrates that the patient has dense breasts. Supplemental screening with whole breast ultrasound or MRI may be considered for further evaluation. Bilateral Breast Mammographic Findings: No significant masses, calcifications or other abnormalities are identified. BI/SCRN MAMM (CAD)W/HELADIO BILAT IMPRESSION: Right Breast: BIRADS 1 NEGATIVE. Left Breast: BIRADS 1 NEGATIVE. OVERALL FINAL ASSESSMENT: BIRADS 1 NEGATIVE. RECOMMENDATION: Routine annual follow-up in 1 Year A letter with findings and recommendations will be mailed to the patient. Reading Location: [id number]
== END | disposition home or self-care (01) ==
LOC: OPBI 15:11
PROVIDERS: PCP Internal Medicine; Referring Provider Advanced Practice Midwife; Visit Provider Advanced Practice Midwife
DX: Z12.31 Encounter for screening mammogram for malignant neoplasm of breast (principal)
CPT/HCPCS: 77063; 77067

== ENCOUNTER 2024-12-16 12:25 | Day surgery (SDC) | payer BC, SELFPAY ==
[2024-12-16] VITALS (13 sets, daily range): BP systolic 81–126; BP diastolic 44–73; PULSE 49–69; RESP 16–18; TEMP 36.4–36.5; O2SAT 99–100; BMI 22.6
[2024-12-16] MEDS: Lactated Ringers 1,000 ML 15 ML IV (12:51)
--- NOTE | 2024-12-16 13:18 | PRE.ANES_ITS ---
ASA Classification* ASA Classification ASA Classification: 2 Assessment & Plan Anesthesia* Anesthesia Assessment Anesthesia Assessment: Discussed sedation and/or anesthesia options, risks, benefits, and alternatives with patient/parents/legal guardian/POA. Questions invited. The patient/parents/legal guardian/POA seems to understand and agrees to proceed with anesthesia plan. Reviewed the physical assessment, medical history, allergy history and patient home medications list prior to surgery/procedure/anesthetic and documented any changes. Performed airway and anesthesia risk assessments. Anesthesia Type Anesthesia Type: MAC History Source History Obtained from:: Patient and Chart Anesthesia Focused Assessment* Temperature: 97.6 F Pulse Rate: 69 Blood Pressure: 126/73 Respiratory Rate: 18 Pulse Ox: 100 Oxygen Delivery Method: Room Air Airway Assessment Mouth opens: >3 cm Mallampati Score: III Teeth Condition: Caps/Crowns (Patient has several crowns. They are all tight.) Neck Range of motion (ROM): Full ROM Focused Labs Anesthesia Preop lab: CBC WBC 7.1 K/mm3 (4.4-11.0) 10/21/24 08:40 10/21/24 RBC 4.87 M/mm3 (4.2-5.4) 10/21/24 08:40 10/21/24 Hgb 14.7 g/dL (12.0-15.0) 10/21/24 08:40 10/21/24 Hct 45.2 % (37-47) 10/21/24 08:40 10/21/24 Plt Count 227 K/mm3 (150-450) 10/21/24 08:40 10/21/24 CHEMISTRY Potassium 4.4 mmol/L (3.3-5.1) 10/21/24 08:40 10/21/24 Sodium 141 mmol/L (133-145) 10/21/24 08:40 10/21/24 BUN 14 mg/dL (4-19) 10/21/24 08:40 10/21/24 Creatinine 0.94 mg/dL (0.70-1.20) 10/21/24 08:40 10/21/24 Glucose 100 mg/dL (70-99) H 10/21/24 08:40 10/21/24 TSH 1.150 uIU/mL (0.300-4.200) 10/21/24 08:40 04/0 11/11 COAG Pre-Assessment Diagnosis/Proposed Procedure Planned Operative Procedure(s): CSCOPE Anesthesia History 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 When Was Last Pacemaker Check QUESTION #4 FULL TEXT: You/Your Family Experience fever (hyperthermia) with Anesthesia Last Oral Intake Last Oral intake: Last Oral Intake NPO since 07:30 12/16/24 12:46 Meds taken in AM with sips of No 12/16/24 12:46 water? 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 Female Yes 12/14/24 11:17 HX of Motion Sickness Yes 12/14/24 11:17 HX of N/V After Surgery Yes 12/14/24 11:17 Non-Smoker Yes 12/14/24 11:17 Duration of Surgery greater No 12/14/24 11:17 than 60 minutes Number of Risk Factors 4 12/14/24 11:17 PONV Score Severe Risk 12/14/24 11:17 Height & Weight Height & Weight: Anesthesia: Height & Weight Height 5 ft 3 in 12/16/24 12:46 Weight: 58 kg 12/16/24 12:46 Body Mass Index (BMI) 22.6 12/16/24 12:46 Respiratory Assessment Respiratory Assessment - coffee machine technician: Respiratory Tract Infection Hx - coffee machine technician Hx Respiratory Tract Infection No 12/14/24 11:17 STOP Sleep Apnea STOP Sleep Apnea - coffee machine technician: STOP Sleep Apnea - coffee machine technician Hx Hypertension Yes: CONTROLLED WITH MED 12/14/24 11:17 Hx Sleep Apnea No 12/14/24 11:17 CPAP BIPAP Do you snore loudly (louder No 12/14/24 11:17 than talking or can be heard Do you often feel tired/ No 12/14/24 11:17 fatigued/ sleepy during daytime? Has anyone observed you stop No 12/14/24 11:17 breathing during sleep? STOP Results Negative 12/14/24 11:17 QUESTION #5 FULL TEXT : Do you snore loudly (louder than talking or can be heard through closed doors)? 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 Specify any problems Hx of Preganancy in last 3 N/A 12/14/24 11:17 Months Nurse Filling Out Transfusion NBUCHER 12/14/24 11:17 & Questions: Date: 12/14/24 12/14/24 11:17 Time: 11:18 12/14/24 11:17 Patient unable to answer at this time (ie. confused, unrespo /Reproduction History /Reproductive History - coffee machine technician: /Reproductive Hx- coffee machine technician Hx Now No 12/14/24 11:17 Gestational Age (in weeks): EDC: Hx Hx Para Hx Section SAB No 12/14/24 11:17 Active Medications Active Medications: Current Medications Generic Name Dose Route Start Last Admin Trade Name Freq PRN Reason Stop Dose Admin Lactated Ringer's 1,000 mls @ 15 mls/hr 12/16/24 13:00 12/16/24 12:51 IV 15 mls/hr .Q48H DEYSI Administration PFSH Medical History Wears glasses Post-menopausal Hypertension Heartburn Gastric reflux Non-smoker PONV (postoperative nausea and vomiting) Abnormal ultrasound of breast Arthritis Hemorrhoids Acid reflux Closed fracture of tibial plafond with fibula involvement Home Medications ?Medication ?Instructions ?Recorded ?Last Taken ?Type blood pressure monitor (Blood #1 ea 10/20/24 Unknown R x Pressure Kit) lisinopril 5 mg tablet 5 mg PO QDAY #30 tabs Unknown Rx Allergy/AdvReac Type Severity Reaction Status Date / Time No Known Allergies Allergy Verified 12/16/24 12:45 Family History Father Myocardial infarction Heart disease Brother Diabetes Daughter Diabetes type 1 Mother Diabetes Dementia Surgical History (Updated 12/16/24 @ 13:[address] 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
--- NOTE | 2024-12-16 13:46 | HP.PCM_ITS ---
HPI - General HPI Narrative AJ LOPEZ, is a 59 F who presents for screening colonoscopy. Her last colonoscopy was more than 10 years ago. She denies abdominal pain or blood in the stool. No family history of colon cancer. [facility] Medical History (Updated 12/16/24 @ 13:[address] Javier Nash MD) Wears glasses Post-menopausal Hypertension Heartburn Gastric reflux Non-smoker PONV (postoperative nausea and vomiting) Abnormal ultrasound of breast Arthritis Hemorrhoids Acid reflux Closed fracture of tibial plafond with fibula involvement Home Medications ?Medication ?Instructions ?Recorded ?Last Taken ?Type blood pressure monitor (Blood #1 ea 10/20/24 Unknown R x Pressure Kit) lisinopril 5 mg tablet 5 mg PO QDAY #30 tabs Unknown Rx Allergy/AdvReac Type Severity Reaction Status Date / Time No Known Allergies Allergy Verified 12/16/24 12:45 Family History Father Myocardial infarction Heart disease Brother Diabetes Daughter Diabetes type 1 Mother Diabetes Dementia Surgical History (Updated 12/16/24 @ 13:[address] 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 Past Medical/Surgical History Planned Operation Planned Operative Procedure(s): CSCOPE Previous Hospitalizations/Surgeries HX Hospitalizations: No HX of Surgeries: 2 c-sections Any Problems With Anesthesia: Yes (post-op nausea) You/Your Family Experience Fever (Hyperthermia) With Anes: No Cholinesterase deficiency: No Cardiovascular Hx Chest Pain within Last 2 months: No Hx of Irregular Heartbeat and/or Afib: No Hx Heart Attack: No Hx Congestive Heart Failure: No Hx Rheumatic Fever: No Hx Hypertension: No Hx Internal Defibrillator: No Hx Pacemaker: No Hx Cardiac Catheterization: No Hx Cardiac Surgery/Stents/Etc.: No Hx Stress Test: No Hx Pain in Legs when Walking/Leg Cramps: No Respiratory Chronic Cough: No HX of Shortness of Breath: No Hoarseness: No Hx Chronic Obstructive Pulmonary Disease (COPD): No Hx Asthma: No Hx Emphysema: No Hx Sleep Apnea: No Hx Respiratory Tract Infection/Cold (presently): No Do You Snore Loudly (louder than talking or can be heard): No Do You Often Feel Tired/ Fatigued/ Sleepy Dring Daytime?: No Has Anyone Observed You Stop Breathing During Sleep?: No Result (for STOP score): Negative Hx Smoking: No Smoking Status: Never smoker Gastrointestinal Controlled With Meds: No Hx Gastrointestinal Disorders: No Hx Gastrointestinal Bleed: No Hx Ulcer: No Hx Hiatal Hernia: No Difficulty Chewing/Swallowing: No Hx Unplanned Weight Loss of 20#: No Neurological Hx Seizures: No HX Syncope/Blackout Spells/Unconsciousness: No Hx Multiple Sclerosis: No Hx Parkinson's Disease: No Hx Head/Neck Injury: No Hx Headaches: Yes Hx Back Injury/Pain: No Restless Legs: No Does patient have nerve stimulator: No Blood Disorder Hx Leukemia: No Bleeding Tendencies: No Hx Deep Vein Thrombosis: No Hx High Cholesterol: No Hx Hepatitis: No Hx Cirrhosis: No Hx Anemia: No Hx Blood Disorders: No Reproduction : No Hx Hysterectomy: No Hx Tubal Ligation: Yes Genitourinary Hx Renal Disease: No Hx Dialysis: No Musculoskeletal Hx Arthritis: Yes Hx Rheumatoid Arthritis: No Endocrine Hx Diabetes: No Insulin: No Thyroid Disease: No Hx Steroid Therapy: No Psycho/Social Hx Substance Use: No Hx Alcohol Use: Yes (occasional) Hx Anxiety: No Hx Depression: No Mental Illness: No Hx Dementia: No Miscellaneous Hx Cancer: No Recent Exposure to Contagious Disease: No Any Loose Teeth: No Allergies No Known Allergies Allergy (Verified 12/16/24 12:45) Paternal: Family History Father Myocardial infarction Heart disease Brother Diabetes Daughter Diabetes type 1 Mother Diabetes Dementia Heart Disease (His father from a massive heart attack) Maternal: Family History Father Myocardial infarction Heart disease Brother Diabetes Daughter Diabetes type 1 Mother Diabetes Dementia - (His mother fell and broke her hip and now in the senior care. Patient does not know other maternal medical history.) Discharge Is Pt Admitted From a Senior Living, or a Senior Care: No After D/C, Where Do you Plan to Go: Return Home Vital Signs Vital Signs Vital Signs: 12/16/24 12:46 12/16/24 12:46 12/16/24 13:30 Temperature 97.6 F L 97.6 F L Temperature Source Temporal Pulse Rate 69 69 Respiratory Rate 18 18 Respiratory Pattern Normal Blood Pressure 126/73 H 126/73 H Blood Pressure Mean 90 Blood Pressure Source Monitor Blood Pressure Position Sitting Blood Pressure Location Left Arm Pulse Ox 100 100 Oxygen Delivery Method Room Air Room Air Weight Weight: 127 lb 13.89 oz Body Mass Index (BMI) 22.6 Physical Exam Const alert and oriented x3 HEENT normocephalic Eyes PERRL Resp normal respiratory effort and normal air movement Cardio regular rate and regular rhythm GI soft to palpation, non-tender and non-distended Extremity normal to inspection Assessment & Plan Assessment/Plan (1) Screen for colon cancer: PLAN: I explained endoscopy in detail to the patient. I explained the risks including but not limited to stroke or heart attack with anesthesia, perforation of the GI tract, bleeding, infection. I explained that any of these could necessitate further emergency surgery. The patient understands and all questions were answered sufficiently. The patient wishes to proceed with procedure. Javier Nash MD Pager: [facility] [address] [place] [address] [address] [place] [address] Office: Surgery Risks - Colonoscopy Risks Include but are not Limited To: Risks include but are not limited to: Bleeding, perforation requiring further surgery, inability to complete colonoscopy requiring barium enema.
--- NOTE | 2024-12-16 14:20 | OP.COLON_ITS ---
Patient Name: Sima Pryor Procedure Date: 12/16/2024 1:45 PM Date of : 1965 Age: 59 Procedure: Colonoscopy Indications: Screening for colorectal malignant neoplasm Providers: Javier Nash MD Referring MD: Susi Dee Md Medicines: Propofol per Anesthesia Patient Profile: This is a 59 year old female. Refer to note in patient chart for documentation of history and physical. Last Colonoscopy: 10 years ago. Complications: No immediate complications. Procedure: Pre-Anesthesia Assessment: - Prior to the procedure, a History and Physical was performed, and patient medications and allergies were reviewed. The patient's tolerance of previous anesthesia was also reviewed. The risks and benefits of the procedure and the sedation options and risks were discussed with the patient. All questions were answered, and informed consent was obtained. Prior Anticoagulants: The patient has taken no anticoagulant or antiplatelet agents. After reviewing the risks and benefits, the patient was deemed in satisfactory condition to undergo the procedure. After I obtained informed consent, the scope was passed under direct vision. Throughout the procedure, the patient's blood pressure, pulse, and oxygen saturations were monitored continuously. The Colonoscope was introduced through the anus and advanced to the cecum, identified by appendiceal orifice and ileocecal valve. The colonoscopy was performed without difficulty. The patient tolerated the procedure well. The quality of the bowel preparation was good. The ileocecal valve, appendiceal orifice, and rectum were photographed. Scope In: 1:57:05 PM Scope Withdrawal Time 0 hours 6 minutes 17 seconds Scope Out: 2:14:16 PM Total Procedure Duration Time 0 hours 17 minutes 11 seconds Findings: The entire examined colon appeared normal on direct and retroflexion views. Impression: - The entire examined colon is normal on direct and retroflexion views. - No specimens collected. Recommendation: - Discharge patient to home. - Resume previous diet. - Continue present medications. - Repeat colonoscopy in 10 years for screening purposes. Procedure Code(s): --- Professional --- 05834, Colonoscopy, flexible; diagnostic, including collection of specimen(s) by brushing or washing, when performed (separate procedure) Diagnosis Code(s): --- Professional --- Z12.11, Encounter for screening for malignant neoplasm of colon CPT copyright 2021 [employer]. All rights reserved. The codes documented in this report are preliminary and upon straightedge worker review may be revised to meet current compliance requirements. Javier Nash MD 12/16/2024 2:19:57 PM This report has been signed electronically. Number of Addenda: 0 Note Initiated On: 12/16/2024 1:45 PM
--- NOTE | 2024-12-16 14:20 | OP.CCLET_ITS ---
12/16/2024 Susi Dee Md Re : Colonoscopy procedure for Sima Pryor Dear Leila This procedure was performed on Monday, December 16, 2024. My impressions and recommendations are as follows: Impressions : - The entire examined colon is normal on direct and retroflexion views. - No specimens collected. Recommendations : - Discharge patient to home. - Resume previous diet. - Continue present medications. - Repeat colonoscopy in 10 years for screening purposes. My findings are described in the full procedure note, which is enclosed. If I can be of further assistance, please feel free to contact me at Doctor phone number(s): , Work: . Sincerely, Javier Nash MD 12/16/2024 2:19:57 PM This report has been signed electronically.
--- NOTE | 2024-12-16 14:26 | PCM.POST.ANE ---
Anesthesia: Postop Eval I Current Vital Signs Temperature: 97.7 F Pulse Rate: 62 Blood Pressure: 92/51 Respiratory Rate: 16 Pulse Ox: 100 Oxygen Delivery Method: Room Air Assessment Airway patent: Yes Spontaneous unlabored respirations: Yes Mental status: Asleep nausea: No Vomiting: No Anesthesia Complication: No Fluid Hydration Crystalloid volume administer (ml): 500 Total IV fluid infused: 500 Progress Note Anesthesia document: Postop Eval 1 completed: Yes
--- NOTE | 2024-12-16 16:37 | PCM.POSTANE2 ---
Anesthesia Postop Eval I Sum Postop Eval Completion status Anesthesia document: Postop Eval 1 completed: Yes Anesthesia Postop Eval I Summary Anesthesia Postop Eval I Summary: Anesthesia Postop Eval I: Assessment Summary Airway patent Yes 12/16/24 14:27 [email or web address] Spontaneous unlabored Yes 12/16/24 14:27 [email or web address] respirations Mental status Asleep 12/16/24 14:27 [email or web address] nausea No 12/16/24 14:27 [email or web address] Vomiting No 12/16/24 14:27 [email or web address] Anesthesia Postop Eval I: Fluid Summary Crystalloid volume administer 500 12/16/24 14:27 [email or web address] (ml) Colloids volume administered ( ml) Blood Product volume administered (ml) Total IV fluid infused 500 12/16/24 14:27 [email or web address] Anesthesia Postop Eval I: Summary Notes Anesthesia Complication No 12/16/24 14:27 [email or web address] Anesthesia Complication Comment: Post-operative progress note Anesthesia: Postop Eval II Evaluation Mental status: Awake Pain Level: 0 nausea: No Vomiting: No
== END 2024-12-16 15:27 | disposition home or self-care (01) ==
LOC: EN 12:25 → AC 12:26
PROVIDERS: PCP Internal Medicine; Referring Provider Internal Medicine; Visit Provider Surgery
PROC: 0DJD8ZZ Inspection of Lower Intestinal Tract, Via Natural or Artificial Opening Endoscopic (ICD-10-PCS; CPT 45378; principal; 2024-12-16 13:25)
DX: Z12.11 Encounter for screening for malignant neoplasm of colon (principal); I10 Essential (primary) hypertension
CPT/HCPCS: 45378; J2405